=== PATIENT | female | born 1955 | race Caucasian/White ===

== ENCOUNTER 2019-11-17 00:04 | Day surgery (SDC) | payer BC, SELFPAY ==
[2019-11-12 10:29] VITALS: BMI 43.9
[2019-11-17 06:56] VITALS: BP 157/103; PULSE 71; RESP 18; TEMP 37.1; O2SAT 98
[2019-11-17] MEDS: LACTATED RINGERS 1,000 ML 150 ML IV CONT (06:57)
--- NOTE | 2019-11-17 07:16 | WPDANESEPPF ---
Anes - Initial Pre Proc Eval Procedure: Operation Date: 11/17/19 08:00 Proposed Procedures p Screening Colonoscopy - Bharath Braun MD Date/Time: 11/17/19 07:16 Surgeon: Bharath Braun MD Pre Op Diagnosis: Neoplasm Screening Patient Data Age: 64 Gender: F Height: 5 ft 4 in Weight: 114.3 kg Last Vital Signs Temp 37.1 C 11/17/19 06:56 Pulse 71 11/17/19 06:56 Resp 18 11/17/19 06:56 BP 157/103 H 11/17/19 06:56 Pulse Ox 98 11/17/19 06:56 Allergies Allergy/AdvReac Type Severity Reaction Status Date / Time No Known Allergies Allergy Verified 11/17/19 06:40 Home Medications Medication Instructions Recorded Confirmed Type aspirin [Adult Aspirin Regimen] 81 mg PO DAILY #90 tablet 07/18/19 11/12/19 Rx amlodipine 5 mg PO DAILY 11/12/19 11/12/19 History atorvastatin 20 mg PO DAILY 11/12/19 11/12/19 History benzonatate 100 mg PO TID PRN 11/12/19 11/12/19 History lisinopril-hydrochlorothiazide 1 tablet PO DAILY 11/12/19 11/12/19 History nebivolol [Bystolic] 20 mg PO DAILY 11/12/19 11/12/19 History Patient hx anesthesia problems: none Family hx anesthesia problems: none PMFSH Past Medical History Medical History HTN (hypertension) Pt's son reports she is prescribed medication, but he is unsure of how often she actually takes it Hyperlipidemia Morbid obesity Surgical History Surgical History History of tonsillectomy Family History Family History Father Carcinoma of colon Mother Carcinoma of colon Other Family history of malignant neoplasm Social History Social History Smoking status: Never smoker Second hand tobacco smoke exposure: No Alcohol intake: current Substance use: never Substance use type: does not use Gender identity (if verbalized by the patient): Female Spiritual care concerns: No Agree to blood products: Yes Anes - Eval Final PreProcedure Day of Procedure 11/17/19 07:16 Patient weight: morbidly obese Heart: regular rate and rhythm Lungs: clear to auscultation Airway: Mallampati scale class II Neurological: alert and oriented Last oral intake: >/= 8 hours ASA classification: III Emergent: no Anesthetic plan: proceed Anesthesia type and monitoring: general GIVS and standard monitoring Informed Consent: The patient's anesthetic plan and its attendant risks and benefits were discussed with the patient/family/POA. Questions were solicited and answers provided to the satisfaction of the patient/family/POA.
--- NOTE | 2019-11-17 07:55 | PM.HPGS ---
History of Present Illness History of Present Illness Consent: Risks, benefits, and alternatives have been discussed and questions answered. Patient agrees to proceed with procedure. Chief complaint: Neoplasm Screening Narrative: Amalia Gonzalez is a 64 year old female here for screening colonoscopy, both parents with colon cancer, her last one 7 years ago Review of Systems Constitutional: Constitutional: Denies headache(s) and Denies weakness Eyes: Eyes: Denies blurry vision ENT: Reports Normal hearing present, Denies headache(s) and Denies neck pain Cardiovascular: Cardiovascular: Denies chest pain and Denies dyspnea Respiratory: Respiratory: Denies dyspnea Gastrointestinal: Gastrointestinal: Reports no additional gastrointestinal complaints Genitourinary: Genitourinary: Denies dysuria Musculoskeletal: Musculoskeletal: Denies neck pain Integumentary/Breasts: Skin/Breast: Denies dry skin Neurologic: Reports Normal hearing present, Denies headache(s) and Denies weakness Psychiatric: Psychiatric: Denies anxiety Endocrine: Endocrine: Denies change in body appearance Hematologic/Lymphatic: Hematologic/Lymphatic: Denies easy bleeding Allergic/Immunologic: Allergic/Immunologic: Denies urticaria PMFSH Past Medical History Medical History HTN (hypertension) Pt's son reports she is prescribed medication, but he is unsure of how often she actually takes it Hyperlipidemia Morbid obesity Surgical History Surgical History History of tonsillectomy Family History Family History Father Carcinoma of colon Mother Carcinoma of colon Other Family history of malignant neoplasm Social History Social History Smoking status: Never smoker Second hand tobacco smoke exposure: No Alcohol intake: current Substance use: never Substance use type: does not use Gender identity (if verbalized by the patient): Female Spiritual care concerns: No Agree to blood products: Yes Meds Home Medications and Allergies Home Medications Medication Instructions Recorded Confirmed Type aspirin [Adult Aspirin Regimen] 81 mg PO DAILY #90 tablet 07/18/19 11/12/19 Rx amlodipine 5 mg PO DAILY 11/12/19 11/12/19 History atorvastatin 20 mg PO DAILY 11/12/19 11/12/19 History benzonatate 100 mg PO TID PRN 11/12/19 11/12/19 History lisinopril-hydrochlorothiazide 1 tablet PO DAILY 11/12/19 11/12/19 History nebivolol [Bystolic] 20 mg PO DAILY 11/12/19 11/12/19 History Allergies Allergy/AdvReac Type Severity Reaction Status Date / Time No Known Allergies Allergy Verified 11/17/19 06:40 Vital Signs Vital Signs - 24 hr 11/17/19 06:56 Temperature 98.7 F Pulse Rate 71 Respiratory Rate 18 Blood Pressure 157/103 H Pulse Oximetry 98 Exam Const: General: comfortable and no acute distress HENMT: General nose exam: Normal nares present Eyes: General: appearance normal, both eyes and all related structures Neck: Neck: no JVD Resp: Auscultation: clear to auscultation bilaterally Cardio: Rate: regular rate Rhythm: regular rhythm GI: Inspection: non-distended GI Palp: Yes Soft to palpation Skin: General skin exam: normal color Neuro: General: gait normal Speech: normal speech Extrem: General: normal to inspection Psych: Mental Status: mental status grossly normal Assessment and Plan Assessment and plan (1) Family history of colon cancer: Code(s): Z80.0 - Family history of malignant neoplasm of digestive organs Status: Acute Assessment and Plan: will proceed with colonoscopy
[2019-11-17 08:25] VITALS: BP 154/91; PULSE 67; RESP 19; O2SAT 100
[2019-11-17 08:35] VITALS: BP 147/71; PULSE 62; RESP 22; O2SAT 100
[2019-11-17 08:45] VITALS: BP 151/87; PULSE 56; RESP 18; O2SAT 100
== END 2019-11-17 09:06 | disposition home or self-care (01) ==
PROVIDERS: PCP Family Medicine Sports Medicine; Visit Provider Internal Medicine Gastroenterology
PROC: 0DJD8ZZ Inspection of Lower Intestinal Tract, Via Natural or Artificial Opening Endoscopic (ICD-10-PCS; CPT 45378; principal; 2019-11-17 08:00)
DX: Z12.11 Encounter for screening for malignant neoplasm of colon (principal); D12.0 Benign neoplasm of cecum; D12.2 Benign neoplasm of ascending colon; K63.5 Polyp of colon; K64.8 Other hemorrhoids; Z80.0 Family history of malignant neoplasm of digestive organs; I10 Essential (primary) hypertension; E78.5 Hyperlipidemia, unspecified; Z79.82 Long term (current) use of aspirin; E66.01 Morbid (severe) obesity due to excess calories; Z68.41 Body mass index [BMI] 40.0-44.9, adult
CPT/HCPCS: 45385; 88305; J2704; J7120

== ENCOUNTER 2020-04-16 09:04 | Outpatient (CLI) | payer MEDICARE, SELFPAY ==
--- NOTE | ~2020-04-16 | XR_ITS ---
XR hip RT min 2V 04/16/2020 10:18 Indication: Right hip pain Procedure: 2 views right hip Comparison: No prior studies for comparison. Findings: Mild osteoarthritis of the right hip. No fracture or traumatic malalignment. No significant soft tissue abnormality. No radiopaque foreign bodies. Impression: 1: Mild osteoarthritis of the right hip. Reviewed, dictated and finalized at location I. Impression: 1: Mild osteoarthritis of the right hip.
--- NOTE | ~2020-04-16 | MR_ITS ---
EXAMINATION: MR knee RT wo con DATE: 04/16/2020 10:08 INDICATION: Right knee pain TECHNIQUE: Magnetic resonance imaging (MRI) of the right knee was performed without intravenous contr ast. Sequences included coronal PD-weighted FSE, coronal PD-weighted FS FSE, sagittal T2-weighted FS E, sagittal PD-weighted FS FSE and axial PD weighted fat saturated FSE. COMPARISON: None. FINDINGS: Evaluation minimally limited by some motion artifact or blurring on multiple sequences including a co uple repeated sequences. Medial compartment: Medial meniscus is normal. Partial-thickness cartilage loss with mild chondral surface regularity dickson ng the medial third of the medial tibial plateau. Additional partial thickness cartilage loss along t he weightbearing medial femoral condyle with deeper chondral ulceration with underlying small central subchondral osteophyte at the lateral side of the anterior and posterior weightbearing medial femora l condyle. Small marginal osteophytes are present. Lateral compartment: Lateral meniscus is normal. Deep chondral fissure at the medial side of the lateral tibial plateau al keisha the shoulder the intercondylar eminence. Full/near full-thickness chondral fissure at the central weightbearing lateral femoral condyle. Small marginal osteophytes are present along with additional small subchondral osteophytes anteriorly at the junction of the weightbearing and trochlear lateral f emoral condyle. Small marginal osteophytes are present Patellofemoral compartment: There is extensive full thickness cartilage loss with subarticular edema and remodeling of the articu lar cortices along the lateral patellar facet and lateral trochlea. Ligaments and tendons: Anterior and posterior cruciate ligaments are normal. The medial collateral ligament and fibular yoan ateral ligament complex are normal. The extensor mechanism is normal. The visualized medial and later al hamstring tendons as well as the iliotibial band are normal. Fluid: Physiologic amount of fluid in the joint space. No loose osteochondral bodies identified. Osseous/other: There is approximately 1 cm lateral patellar subluxation. No fracture or pathologic marrow replacing process. IMPRESSION: 1. Possible 1 cm lateral patellar subluxation with advanced osteoarthritis at the lateral side of the patellofemoral compartment. 2. Mild osteoarthritis with regions of moderate to high-grade chondral malacia in the medial and late ral compartments. Reviewed, dictated and finalized at location A. IMPRESSION: 1. Possible 1 cm lateral patellar subluxation with advanced osteoarthritis at t he lateral side of the patellofemoral compartment. 2. Mild osteoarthritis with regions of moderate to high-grade chondral malacia in the medial and lateral compartments.
== END 2020-04-16 09:05 | disposition home or self-care (01) ==
PROVIDERS: PCP Family Medicine Sports Medicine; Visit Provider Anesthesiology
DX: M17.11 Unilateral primary osteoarthritis, right knee (principal); M16.11 Unilateral primary osteoarthritis, right hip
CPT/HCPCS: 73502; 73721

== ENCOUNTER 2022-06-22 11:23 | Outpatient (CLI) | payer MEDICARE, SELFPAY ==
[2022-06-22 19:55] LABS: Basophils Percent Auto 0.8 % (0.2-1.2); Eosinophils Absolute Auto 0.2 K/mm3 (0-0.3); Eosinophils Percent Auto 3.3 % (0-4.4); Hematocrit 40.8 % (37.0-47.0); Hemoglobin 12.6 g/dL (12.0-15.0); Immature Granulocyte Absolute 0.01 K/mm3 (0.00-0.031); Immature Granulocyte Percent A 0.2 % (0-0.5); Lymphocytes Absolute Auto 1.07 K/mm3 (0.9-3.2); Lymphocytes Percent Auto 20.7 % (18.3-44.2); Mean Corpuscular HGB Conc 30.9 g/dl (32-36); Mean Corpuscular Hemoglobin 27.9 pg (26-34); Mean Corpuscular Volume 90.5 fl (80-100); Mean Platelet Volume 10.5 fl (7.4-10.4); Monocytes Absolute Auto 0.4 K/mm3 (0.1-0.6); Monocytes Percent Auto 8.5 % (2.6-8.5); Neutrophils Absolute Auto 3.4 K/mm3 (1.3-6.7); Neutrophils Percent Auto 66.5 % (45.5-73.1); Platelet Count Result 289 k/mm3 (150-375); Red Blood Count 4.51 M/mm3 (4.2-5.4); Red Cell Distribution Width 13.9 % (11.5-14.5); White Blood Count 5.2 K/mm3 (4.5-10.0)
[2022-06-22 21:05] LABS: Hemoglobin A1C 5.7 % (<5.7)
[2022-06-22 22:37] LABS: Alanine Aminotransferase 25 U/L (6-35); Albumin Level 4.5 g/dL (3.5-5.1); Alkaline Phosphatase 99 U/L (38-126); Anion Gap 12 mmol/L (8-16); Aspartate Amino Transferase 22 U/L (14-36); Bilirubin,Total 0.4 mg/dL (0.2-1.3); Blood Urea Nitrogen 19 mg/dL (7-17); Carbon Dioxide 25 mmol/L (22-30); Chloride 104 mmol/L (98-107); Cholesterol 204 mg/dL (0-200); Estimated Glomerular Filt Rate > 60; Glucose 91 mg/dL (65-110); HDL Direct 86 mg/dL; Potassium 3.9 mmol/L (3.4-5.0); Sodium 141 mmol/L (137-145); Triglycerides 108 mg/dL (<150)
[2022-06-22 22:48] LABS: LDL Cholesterol Direct 81 mg/dL
[2022-06-23 10:11] LABS: Vitamin D 25 Hydroxy 68.8 ng/mL
== END 2022-06-22 11:24 | disposition home or self-care (01) ==
LOC: ANHGOSHLAB 11:28
PROVIDERS: PCP Internal Medicine; Visit Provider Clinical Nurse Specialist
DX: I10 Essential (primary) hypertension (principal); R73.9 Hyperglycemia, unspecified; E55.9 Vitamin D deficiency, unspecified
CPT/HCPCS: 36415; 80053; 80061; 82306; 83036; 84443; 85025

== ENCOUNTER 2022-07-17 13:15 | Outpatient (RCR) | payer MEDICARE, OTHER, SELFPAY ==
--- NOTE | 2022-06-15 11:43 | PCPTNOTE ---
Patient called & cancelled scheduled initial evaluation this date.
--- NOTE | 2022-06-20 15:31 | PTOPEVAL1 ---
Assessment and note entered by Pauline Olvera, PT, DPT Evaluation Information Assessment Status Evaluation Diagnosis back and leg pain, gait abnormalities Subjective Information Pt states she does not have knee pain. She states she has scoliosis and her legs will not stop swelling, she states it feels like she has bricks in her shoes. She states her legs feel very heavy and almost numb. Pt states she sits and sleeps in a recliner with her legs in a dependent position most of the day. She reports back pain mainly when walking, at it gets progressively worse throughout the day. Pt states she lives alone in an accessible home with no stairs. Pt states she can sit as long as she wants without an increase in pain. She reports she has been able to do her laundry and cook more. She would like to be able to walk outside. She has been using a walker since her R TKA 1.5 years ago , she just recently started using a cane. Reported Pain Level Pain Score 2: Self Report Assessment PT Clinical Summary Amalia CONTE presents to therapy today for her initial evaluation with a diagnosis of R knee and low back pain. Today she demonstrates decreased LE strength and core strength bilaterally, she is unable to perform a double leg heel raise, a double leg heel raise, or a sit<>stand without UE support. She reports heaviness and decreased sensations in her kelli LE since her knee surgery, it was recommended that she follow up with her referring provider to see if she can get a referral for lymphedema therapy. She has a very decreased gait speed. Skilled physical therapy services are indicated to improve strength, mobility, endurance, to minimize fall risk, and to promote safety with functional mobility. Plan of Care Interventions Electrical Stimulation,Gait Training,Hot Pack/Cold Pack,Manual Therapy,Neuro Re-education,Patient/ Caregiver Educati,Therapeutic Activities, Therapeutic Exercise PT Services Indicated Yes Treatment Frequency and 2x/wk for 4 wks Duration These treatments will address the objective and functional deficits as defined above. The patient will be advanced safely and appropriately in order for the patient to progress towards his/her prior level of function. Additional exercises will be introduced and as well as a comprehensive home exercise program upon discharge, if needed, ?to ensure carryover of functional gains achieved in the clinic. This treatment plan has been reviewed and agreement upon by the patient.
--- NOTE | 2022-07-05 13:21 | PCPTNOTE ---
Patient called to cancel appointment this date due to illness.
--- NOTE | 2022-07-12 12:43 | PCPTNOTE ---
Patient reports she is too sore to come in to therapy this date.
--- NOTE | 2022-07-17 15:46 | PTOPPROG ---
Assessment and note entered by Pauline Olvera, PT, DPT Evaluation Information Assessment Status Progress Diagnosis back and leg pain, gait abnormalities Subjective Information Pt states she has her evaluation for lymphedema coming up later this week. Pt states she has been improvement since starting therapy. She states she over did it last week and was sore for a few days . She states she does her exercises daily, and they are still hard. She would like to continue therapy. Pt reports 10% improvement in overall symptoms. Assessment PT Clinical Summary Naty CONTE presents to therapy today for her progress report following 5 visits of skilled therapy and participation in a home exercise program to treat her decreased mobility and gait deviations. Today she demonstrates minimal improvement during her 2 min walk test, she increased from 85ft to 105ft. However, she is now able to perform the 5xSTS test without UE support, this does take her increased time to complete, putting her at an increased risk for falls. Continuation of skilled physical therapy services are indicated to continue progressing towards therapy goals, to promote safety, and to improve functional mobility. Pt is getting evaluated by a lymphedema therapist and will continue here after she has complete her lymphedema POC. Plan of Care Interventions Electrical Stimulation,Gait Training,Hot Pack/Cold Pack,Manual Therapy,Neuro Re-education,Patient/ Caregiver Educati,Therapeutic Activities, Therapeutic Exercise PT Services Indicated Yes Treatment Frequency and to continue after lymphedema POC Duration These treatments will address the objective and functional deficits as defined above. The patient will be advanced safely and appropriately in order for the patient to progress towards his/her prior level of function. Additional exercises will be introduced and as well as a comprehensive home exercise program upon discharge, if needed, ?to ensure carryover of functional gains achieved in the clinic. This treatment plan has been reviewed and agreement upon by the patient.
--- NOTE | 2022-09-20 08:15 | PTOPDC ---
Assessment and note entered by Pauline Olvera, PT, DPT Evaluation Information Assessment Status Discharge- pt not present Diagnosis back and leg pain, gait abnormalities Subjective Information Amalia Deluna continues to be seen by a lymphedema therapist for treatment. She was placed on hold here pending her, progress with lymphedema therapy. If after finishing with lymphedema treatments she is to continue therapy for LBP and decreased mobility,she will need a new order. Amalia Deluna will be discharged at this time.
== END 2022-09-18 23:59 | disposition home or self-care (01) ==
LOC: ANHGOSHPT 13:15
PROVIDERS: PCP Internal Medicine
DX: M25.561 Pain in right knee (principal); M54.89 Other dorsalgia
CPT/HCPCS: 97110; 97112; 97161; 97530

== ENCOUNTER → 2022-07-18 13:33 | Outpatient (CLI) | payer MEDICARE, SELFPAY ==
--- NOTE | ~2022-07-18 | US_ITS ---
EXAMINATION: US venous doppler [facility] DATE: 07/18/2022 14:04 INDICATION: Lower limb swelling TECHNIQUE: Grayscale ultrasound images without and with compression and Doppler ultrasound images of the bilateral lower extremity veins were obtained. COMPARISON: None. FINDINGS: The visualized portions of right common femoral vein, profunda (deep) femoral vein, femoral vein, pop liteal vein, posterior tibial veins, peroneal veins, gastrocnemius vein and greater saphenous vein ou tflow are patent. The visualized portions of left common femoral vein, profunda femoral vein, femoral vein, popliteal v ein, posterior tibial veins, peroneal veins, gastrocnemius vein and greater saphenous vein outflow ar e patent. IMPRESSION: 1. No deep venous thrombosis in either lower limb. Reviewed, dictated and finalized at location A. [employer]
== END ==
PROVIDERS: PCP Clinical Nurse Specialist; Visit Provider Clinical Nurse Specialist
DX: M79.89 Other specified soft tissue disorders (principal)
CPT/HCPCS: 93970

== ENCOUNTER 2022-10-10 15:00 | Outpatient (RCR) | payer MEDICARE, OTHER, SELFPAY ==
--- NOTE | 2022-07-20 15:14 | PTOPEVAL1 ---
Assessment and note entered by Katelyn Cruz, PT Evaluation Information Assessment Status Evaluation Diagnosis soft tissue disorder/ B LE lymphedema Onset about 2 yr ago- after TKR Subjective Information was getting therapy for walking, balance, but it is on hold until I get the swelling cleared up; Reported Pain Level Pain Score Self Report Additional Pain Score Comments pain of 7-8 in legs- heavy feeling; like lugging bricks around, legs hurt Assessment PT Clinical Summary BJ has the diagnosis of B LE lymphedema. She is on hold from PT out pt for LE strength, gait/ balance type activities, to have her lymphedema addressed. By having the swelling decreased in her legs, it will ease her mobility & leg strength. She has leg exercises from the other therapy. She reports heaviness and pain in her legs, with difficulty moving them. With the evaluation, she has a combination of lipedema and lymphedema, with redness and fibrotic tissue over her lower leg, dorsum of foot & toe edema; over her knees and thighs is more lipedema with soft, fluffy tissue. Skilled PT services are indicated for complete decongestive therapy--manual lymph drainage, multi layer compression wraps, education for skin care, lymphedema management and appropriate compression garments for her to obtain. Plan of Care Interventions Intermittent Compression,Lymphedema Compression Pump ,Manual Lymph Drainage,Therapeutic Exercise PT Services Indicated Yes Treatment Frequency and 0-3x/wk for 8 weeks, due to therapist availability Duration treatment delayed in starting These treatments will address the objective and functional deficits as defined above. The patient will be advanced safely and appropriately in order for the patient to progress towards his/her prior level of function. Additional exercises will be introduced and as well as a comprehensive home exercise program upon discharge, if needed, ?to ensure carryover of functional gains achieved in the clinic. This treatment plan has been reviewed and agreement upon by the patient.
--- NOTE | 2022-08-24 14:53 | PCPTNOTE ---
pt was 15 min late for appt time, but her time had been changed from 2:00 to 1:30 and she was not aware of the change and arrived at 1:45;
--- NOTE | 2022-08-30 10:07 | PCPTNOTE ---
Patient called & cancelled scheduled appointment this date due to inclement weather.
--- NOTE | 2022-08-31 10:17 | PCPTNOTE ---
appointment on 08-29-22 was canceled due to therapist not available/ill; today's appt canceled by pt due to bad weather. I called her to discuss her wraps--she is to remove them and she has some compression socks that she will wear until return next week.
--- NOTE | 2022-09-14 16:05 | PTOPPROG ---
Assessment and note entered by Katelyn Cruz, PT Evaluation Information Assessment Status Progress Diagnosis soft tissue disorder/ B LE lymphedema Onset about 2 yr ago- after TKR Subjective Information INÉS reports: legs are definiately looking better; have been doing leg exercises and self massage; plan to order the leg garments next week; Assessment PT Clinical Summary INÉS has received 16 PT sessions. Compared to the initial evaluation: circumferenital measurement of legs have decreased : R by 14.7 cm and L by 34.4 cm; improved skin integrity with less redness over lower legs and less fibrotic tissue; less pain in her legs, but still has tenderness to touch L > R; strength of legs have improved- she is now able to lift her legs on/off the mat without assist; She is using loaner velcro compression garments for lower leg and foot--she is to order her own next week, when she gets her check. She is not interested in this time for compression to her knees and thighs. INÉS expresses a fear of falling and problems walking--an order request was faxed to address the gait and balance issues. Continue lymphedema treatment for further reduction and improvement in her skin. Await her to obtain compression garments for lower legs and feet. When orders received for gait/balance, will add to plan care. Plan of Care Interventions Intermittent Compression,Lymphedema Compression Pump ,Manual Lymph Drainage PT Services Indicated Yes Treatment Frequency and 2-3x/wk for 4 weeks Duration These treatments will address the objective and functional deficits as defined above. The patient will be advanced safely and appropriately in order for the patient to progress towards his/her prior level of function. Additional exercises will be introduced and as well as a comprehensive home exercise program upon discharge, if needed, ?to ensure carryover of functional gains achieved in the clinic. This treatment plan has been reviewed and agreement upon by the patient.
--- NOTE | 2022-09-28 16:09 | PTOPEVAL1 ---
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 She is currently receiving therapy here for lymphedema of B LE's. Evaluation this date for mobility and added to treatment plan of care. She reports gradual decrease in mobility past few years, using a wheeled walker and walking is more difficult. She is not doing a formal exercise program, other than few sitting movements of legs. Back pain and R knee pain also limit her mobility. She has difficulty getting in/out bed, so is sleeping in a recliner. With the evaluation, she has decreased strength of B LE's, decreased supine/sit/stand transfer skills; TUG time of 29 seconds with wheeled walker, 5 reps sit/clinic md associate 32 seconds with B UE use; 2 minute walking test distance of 125'; Tinetti balance score of 17/28= high risk for falls. Skilled PT services are indicated for therapeutic exercises to increase strength of LE's, gait and balance retraining, to increase safety with mobility and improve transfer skills. Education for home exercises and safety with mobility. Plan of Care Interventions Gait Training,Neuro Re-education,Therapeutic Activities,Therapeutic Exercise PT Services Indicated Yes Treatment Frequency and 1-2x/wk for 5 weeks Duration These treatments will address the objective and functional deficits as defined above. The patient will be advanced safely and appropriately in order for the patient to progress towards his/her prior level of function. Additional exercises will be introduced and as well as a comprehensive home exercise program upon discharge, if needed, ?to ensure carryover of functional gains achieved in the clinic. This t
--- NOTE | 2022-10-08 14:27 | PCPTNOTE ---
Patient called & cancelled scheduled appointment this date due to inclement weather.
--- NOTE | 2022-10-12 15:20 | PCPTNOTE ---
PHYSICAL THERAPY DISCHARGE 10-12-22 Attending Provider: JEREMY OchoaC Patient:Amalia Gonzalez Date of :1955 Amalia Deluna called today and canceled her reevaluation appointment, stated that her insurance has changed and she needed to cancel all of her appointments; Therefore she will be discharged at this time. She has received 21 PT appointments for lymphedema of R and L LE and gait/balance issues. To manage her lymphedema she has velcro compression lower leg garments and foot pieces. Education was completed for self management of her lymphedema. The goals were not assessed. Thank you for referring Ms. Gonzalez to [facility].
--- NOTE | 2022-10-12 15:24 | PCPTNOTE ---
pt was issued a new V # for today's PT reevaluation appt; she then called and canceled all of her appt, so the new V# was not used. And this number was her d/c status.
== END 2022-10-12 08:16 | disposition home or self-care (01) ==
LOC: ANHPT 15:00
PROVIDERS: PCP Clinical Nurse Specialist; Visit Provider Clinical Nurse Specialist
DX: M79.89 Other specified soft tissue disorders (principal); R26.9 Unspecified abnormalities of gait and mobility
CPT/HCPCS: 29581; 97016; 97110; 97112; 97140; 97161; 97162; 97530

== ENCOUNTER 2022-11-05 02:04 | Day surgery (SDC) | payer MEDICARE, MEDICAID, SELFPAY ==
[2022-10-19 13:42] VITALS: BMI 43.4
[2022-11-05 10:02] VITALS: BP 154/89; PULSE 88; RESP 18; TEMP 36.8; O2SAT 99; BMI 42.1
[2022-11-05] MEDS: LACTATED RINGERS 1,000 ML 150 ML IV CONT (10:18)
--- NOTE | 2022-11-05 10:37 | PM.HPGS ---
History of Present Illness History of Present Illness Consent: Risks, benefits, and alternatives have been discussed and questions answered. Patient agrees to proceed with procedure. Chief complaint: hx colon polyps, family hx colon ca Narrative: Amalia Gonzalez is a 67 year old female with colon polyps in 2019, both parents with colon cancer. Review of Systems Constitutional: Constitutional: Denies headache(s) and Denies weakness Eyes: Eyes: Denies blurry vision ENT: Reports Normal hearing present, Denies headache(s) and Denies neck pain Cardiovascular: Cardiovascular: Denies chest pain and Denies dyspnea Respiratory: Respiratory: Denies dyspnea Gastrointestinal: Gastrointestinal: Reports no additional gastrointestinal complaints Genitourinary: Genitourinary: Denies dysuria Musculoskeletal: Musculoskeletal: Denies neck pain Integumentary/Breasts: Skin/Breast: Denies dry skin Neurologic: Reports Normal hearing present, Denies headache(s) and Denies weakness Psychiatric: Psychiatric: Denies anxiety Endocrine: Endocrine: Denies change in body appearance Hematologic/Lymphatic: Hematologic/Lymphatic: Denies easy bleeding Allergic/Immunologic: Allergic/Immunologic: Denies urticaria PMF Past Medical History Medical History (Updated 11/05/22 @ 10:38 by Bharath Braun MD) Adenomatous colon polyp Family history of colon cancer HTN (hypertension) Hyperlipidemia Morbid obesity Surgical History Surgical History (Reviewed 06/22/22 @ 10:26 by Santa Sexton [facility]) History of knee replacement Right History of tonsillectomy Family History Family History Father Carcinoma of colon Cerebrovascular accident Mother Carcinoma of colon Sibling Breast cancer Grandparent Hypertension Other Family history of malignant neoplasm Social History Social History (Reviewed 06/22/22 @ 10:26 by Santa Sexton [facility]) Smoking status: Never smoker Second hand tobacco smoke exposure: No Alcohol intake: never Substance use: never Substance use type: does not use Gender identity (if verbalized by the patient): Female Spiritual care concerns: No Agree to blood products: Yes Meds Home Medications and Allergies Home Medications Medication Instructions Recorded Confirmed Type amlodipine 5 mg tablet 5 mg PO DAILY 11/12/19 11/05/22 History lisinopril 20 1 tablet PO DAILY 11/12/19 11/05/22 History mg-hydrochlorothiazide 12.5 mg tablet acetaminophen 500 mg tablet 500 mg PO Q6H PRN Pain 02/28/22 11/05/22 History (Tylenol Extra Strength) atorvastatin 20 mg tablet 20 mg PO DAILY #90 tabs 04/17/22 11/05/22 Rx meloxicam 7.5 mg tablet See Rx Instructions .Route 10/29/22 11/05/22 Rx .COMPLEX PRN Pain #90 tabs Allergies Allergy/AdvReac Type Severity Reaction Status Date / Time No Known Allergies Allergy Verified 11/05/22 10:01 Vital Signs Vital Signs - 24 hr 11/05/22 10:02 Temperature 98.2 F Pulse Rate 88 Respiratory Rate 18 Blood Pressure 154/89 H Pulse Oximetry 99 Oxygen Delivery Room Air Exam Const: General: comfortable and no acute distress HENMT: Face/Nose/Sinus: Normal nares present Eyes: General: appearance normal, both eyes and all related structures Neck: Neck: no JVD Resp: Auscultation: clear to auscultation bilaterally Cardio: Rate: regular rate Rhythm: regular rhythm GI: Inspection: non-distended GI Palp: Yes Soft to palpation Skin: General skin exam: normal color Neuro: General: gait normal Speech: normal speech Extrem: General: normal to inspection Psych: Mental Status: mental status grossly normal Assessment and Plan Assessment and plan (1) Family history of colon cancer: Code(s): Z80.0 - Family history of malignant neoplasm of digestive organs Status: Acute (2) Adenomatous colon polyp: Code(s): D12.6 - Benign neoplasm of c
--- NOTE | 2022-11-05 10:46 | P.PNAN_ITS ---
Anes - Initial Pre Proc Eval Procedure: Operation Date: 11/05/22 11:30 Proposed Procedures p Colonoscopy - Bharath Braun MD Date/Time: 11/05/22 10:46 Surgeon: Bharath Braun MD Pre Op Diagnosis: hx colon polyps, family hx colon ca Patient Data Age: 67 Gender: F Height: 1.63 m Weight: 111.3 kg Last Vital Signs Temp 98.2 F 11/05/22 10:02 Pulse 88 11/05/22 10:02 Resp 18 11/05/22 10:02 BP 154/89 H 11/05/22 10:02 Pulse Ox 99 11/05/22 10:02 O2 Del Method Room Air 11/05/22 10:02 Allergies Allergy/AdvReac Type Severity Reaction Status Date / Time No Known Allergies Allergy Verified 11/05/22 10:01 Home Medications Medication Instructions Recorded Confirmed Type amlodipine 5 mg tablet 5 mg PO DAILY 11/12/19 11/05/22 History lisinopril 20 1 tablet PO DAILY 11/12/19 11/05/22 History mg-hydrochlorothiazide 12.5 mg tablet acetaminophen 500 mg tablet 500 mg PO Q6H PRN Pain 02/28/22 11/05/22 History (Tylenol Extra Strength) atorvastatin 20 mg tablet 20 mg PO DAILY #90 tabs 04/17/22 11/05/22 Rx meloxicam 7.5 mg tablet See Rx Instructions .Route 10/29/22 11/05/22 Rx .COMPLEX PRN Pain #90 tabs Patient hx anesthesia problems: none Family hx anesthesia problems: none Results Review: All pre-operative results and documents have been reviewed as part of the pre- operative evaluation. [facility] Past Medical History Medical History (Updated 11/05/22 @ 10:38 by Bharath Braun MD) Adenomatous colon polyp Family history of colon cancer HTN (hypertension) Hyperlipidemia Morbid obesity Surgical History Surgical History History of knee replacement Right History of tonsillectomy Family History Family History Father Carcinoma of colon Cerebrovascular accident Mother Carcinoma of colon Sibling Breast cancer Grandparent Hypertension Other Family history of malignant neoplasm Social History Social History Smoking status: Never smoker Second hand tobacco smoke exposure: No Alcohol intake: never Substance use: never Substance use type: does not use Gender identity (if verbalized by the patient): Female Spiritual care concerns: No Agree to blood products: Yes Anes - Eval Final PreProcedure Day of Procedure 11/05/22 10:46 Patient weight: morbidly obese Heart: regular rate and rhythm Lungs: clear to auscultation Airway: Mallampati scale class III Neurological: alert and oriented Last oral intake: >/= 8 hours ASA classification: III Emergent: no Anesthetic plan: proceed Anesthesia type and monitoring: general GIVS and standard monitoring Results Review: All pre-operative results and documents have been reviewed as part of the pre- operative evaluation. Informed Consent: The patient's anesthetic plan and its attendant risks and benefits were discussed with the patient/family/POA. Questions were solicited and answers provided to the satisfaction of the patient/family/POA.
[2022-11-05 11:04] VITALS: BP 150/93; PULSE 86; RESP 16; O2SAT 100
[2022-11-05 11:14] VITALS: BP 162/88; PULSE 103; RESP 14; O2SAT 100
[2022-11-05 11:24] VITALS: BP 144/83; PULSE 78; RESP 16; O2SAT 100
== END 2022-11-05 11:35 | disposition home or self-care (01) ==
PROVIDERS: PCP Clinical Nurse Specialist; Visit Provider Internal Medicine Gastroenterology
PROC: 0DJD8ZZ Inspection of Lower Intestinal Tract, Via Natural or Artificial Opening Endoscopic (ICD-10-PCS; CPT 45378; principal; 2022-11-05 11:30)
DX: Z12.11 Encounter for screening for malignant neoplasm of colon (principal); K57.30 Diverticulosis of large intestine without perforation or abscess without bleeding; K64.8 Other hemorrhoids; Z86.010 Personal history of colon polyps; Z80.0 Family history of malignant neoplasm of digestive organs; I10 Essential (primary) hypertension; E78.5 Hyperlipidemia, unspecified; E66.01 Morbid (severe) obesity due to excess calories; Z68.41 Body mass index [BMI] 40.0-44.9, adult
CPT/HCPCS: G0105; J2704; J7120

== ENCOUNTER 2023-10-10 11:01 | Outpatient (CLI) | payer MEDICARE, SELFPAY ==
[2023-10-10 13:13] LABS: Basophils Absolute Auto 0.1 K/mm3 (0.0-0.1); Basophils Percent Auto 1.1 % (0.2-1.2); Eosinophils Absolute Auto 0.2 K/mm3 (0-0.3); Eosinophils Percent Auto 4.1 % (0-4.4); Hematocrit 33.3 % (37.0-47.0); Hemoglobin 9.2 g/dL (12.0-15.0); Lymphocytes Absolute Auto 1.07 K/mm3 (0.9-3.2); Lymphocytes Percent Auto 19.9 % (18.3-44.2); Mean Corpuscular HGB Conc 27.6 g/dl (32-36); Mean Corpuscular Hemoglobin 20.5 pg (26-34); Mean Corpuscular Volume 74.3 fl (80-100); Mean Platelet Volume 10.3 fl (7.4-10.4); Monocytes Absolute Auto 0.6 K/mm3 (0.1-0.6); Monocytes Percent Auto 10.8 % (2.6-8.5); Neutrophils Absolute Auto 3.5 K/mm3 (1.3-6.7); Neutrophils Percent Auto 64.1 % (45.5-73.1); Platelet Count Result 326 k/mm3 (150-375); Red Blood Count 4.48 M/mm3 (4.2-5.4); Red Cell Distribution Width 19.5 % (11.5-14.5); White Blood Count 5.4 K/mm3 (4.5-10.0)
[2023-10-10 13:26] LABS: Hemoglobin A1C 5.5 % (<5.7)
[2023-10-10 13:35] LABS: Alanine Aminotransferase 16 U/L (6-35); Albumin Level 4.1 g/dL (3.5-5.1); Alkaline Phosphatase 98 U/L (38-126); Anion Gap 7 mmol/L (8-16); Aspartate Amino Transferase 22 U/L (14-36); Bilirubin,Total 0.4 mg/dL (0.2-1.3); Blood Urea Nitrogen 19 mg/dL (7-17); Calcium 9.4 mg/dL (8.4-10.2); Carbon Dioxide 29 mmol/L (22-30); Chloride 105 mmol/L (98-107); Estimated Glomerular Filt Rate > 60; Glucose 88 mg/dL (65-110); Potassium 3.8 mmol/L (3.4-5.0); Sodium 141 mmol/L (137-145)
[2023-10-10 13:40] LABS: Vitamin D 25 Hydroxy 19.5 ng/mL
[2023-10-10 13:51] LABS: Hypochromasia 1+ (NORMAL); Microcytosis 1+ (NORMAL); Platelet Estimate Adequate (Adequate)
[2023-10-10 13:52] LABS: Schistocytes Rare (NORMAL)
== END 2023-10-10 11:02 | disposition home or self-care (01) ==
PROVIDERS: PCP Internal Medicine; Visit Provider Clinical Nurse Specialist
DX: R73.9 Hyperglycemia, unspecified (principal); E55.9 Vitamin D deficiency, unspecified; I10 Essential (primary) hypertension; Z13.228 Encounter for screening for other metabolic disorders
CPT/HCPCS: 36415; 80053; 82306; 83036; 84443; 85025

== ENCOUNTER 2024-01-30 23:45 | Inpatient (IN) | payer MEDICARE, SELFPAY ==
--- NOTE | ~2024-01-30 | XR_ITS ---
Portable chest x-ray Comparison: None Clinical History: Weakness Findings: Lungs are clear, without focal consolidation or pleural effusion. Cardiomediastinal silho uette is prominent. Bones and soft tissues are unremarkable. Impression: Clear lungs. Probable cardiomegaly. Reviewed, dictated and finalized at location . Impression: Clear lungs. Probable cardiomegaly.
[2024-01-30 23:47] VITALS: BP 172/111; PULSE 107; RESP 16; TEMP 37.4; O2SAT 98
--- NOTE | 2024-01-30 23:52 | ECG_ITS ---
SEE SCANNED COPY FOR CONFIRMED REPORT MTDD
[2024-01-31] VITALS (13 sets, daily range): BP systolic 140–195; BP diastolic 66–106; PULSE 83–115; RESP 16–21; TEMP 36.7–37.2; O2SAT 96–100; BMI 43.3
[2024-01-31 00:39] LABS: Basophils Percent Auto 0.4 % (0.2-1.2); Hematocrit 36.1 % (37.0-47.0); Hemoglobin 10.9 g/dL (12.0-15.0); Immature Granulocyte Absolute 0.06 K/mm3 (0.00-0.031); Immature Granulocyte Percent A 0.6 % (0-0.5); Lymphocytes Absolute Auto 0.63 K/mm3 (0.9-3.2); Lymphocytes Percent Auto 6.2 % (18.3-44.2); Mean Corpuscular HGB Conc 30.2 g/dl (32-36); Mean Corpuscular Volume 76.3 fl (80-100); Mean Platelet Volume 10.6 fl (7.4-10.4); Monocytes Absolute Auto 0.4 K/mm3 (0.1-0.6); Monocytes Percent Auto 4.3 % (2.6-8.5); Neutrophils Absolute Auto 8.9 K/mm3 (1.3-6.7); Neutrophils Percent Auto 88.5 % (45.5-73.1); Platelet Count Result 276 k/mm3 (150-375); Red Blood Count 4.73 M/mm3 (4.2-5.4); Red Cell Distribution Width 20.3 % (11.5-14.5); White Blood Count 10.1 K/mm3 (4.5-10.0)
[2024-01-31 00:51] LABS: Alanine Aminotransferase 18 U/L (6-35); Albumin Level 4.4 g/dL (3.5-5.1); Alkaline Phosphatase 104 U/L (38-126); Anion Gap 10 mmol/L (4-12); Aspartate Amino Transferase 21 U/L (14-36); Bilirubin,Total 0.5 mg/dL (0.2-1.3); Blood Urea Nitrogen 22 mg/dL (7-17); Calcium 8.9 mg/dL (8.4-10.2); Carbon Dioxide 23 mmol/L (22-30); Chloride 107 mmol/L (98-107); Estimated CRCL calculation 67 ml/min; Estimated Glomerular Filt Rate > 60; Glucose 109 mg/dL (65-110); Potassium 3.5 mmol/L (3.4-5.0); Sodium 140 mmol/L (137-145)
[2024-01-31 00:52] LABS: Lactic Acid Reflex 1.6 mmol/L (0.7-2.0)
[2024-01-31 01:01] LABS: Lipase 98 U/L (23-300); Magnesium 1.9 mg/dL (1.6-2.3)
[2024-01-31 01:02] LABS: Appearance Urine Turbid (Clear); Bacteria Urine None Seen /hpf; Bilirubin Urine Negative (Negative); Blood Urine 2+ (Negative); Budding Yeast Urine Present /hpf; Color Urine Dark Yellow (Yellow); Glucose Urine UA Negative (Negative); Ketones Urine 1+ mg/dL (Negative); Leukocyte Esterase Ur 2+ LEU/UL (Negative); Need Manual Microscopic Reviewed; Nitrate Urine Negative (Negative); Protein Urine 2+ mg/dL (Negative); Specific Grav Ur 1.039 (1.001-1.035); Squamous Epithelial Cell Urine Few /hpf (Few); WBC Urine >100 /hpf (0-3)
[2024-01-31 01:03] LABS: Add Urine Microscopic? YES
[2024-01-31 01:08] LABS: NT Pro B Type Natriuretic Pept 366 pg/mL (19.9-100)
[2024-01-31 01:13] LABS: Influenza A QL RT-PCR Negative (Negative); Influenza B QL RT-PCR Negative (Negative); RSV RNA, RT-PCR Negative (Negative); SARS-CoV-2 RNA PCR Negative (Negative)
--- NOTE | 2024-01-31 02:51 | ED.GENADULT ---
HPI - General Adult General Chief complaint: Weakness Stated complaint: weakness and light headed, glf Time Seen by Provider: 01/31/24 00:03 History of Present Illness HPI narrative: This is a 68-year-old female with a history morbid obesity, lymphedema, and hypertension, presenting for weakness. Patient was sitting in her recliner earlier today when she tried to get up she was too weak to stand up. Her son tried to help her move and she fell to the ground. She did not sustain any serious injuries or have any pain but she was unable to get up without assistance. She was then brought to the hospital for evaluation. Patient is denying fevers chills chest pain difficulty breathing abdominal pain or urinary symptoms. Patient uses an adult diaper Related Data Home Medications Medication Instructions Recorded Confirmed acetaminophen 500 mg tablet 500 mg PO Q6H PRN Pain 02/28/22 10/10/23 (Tylenol Extra Strength) cholecalciferol (vitamin D3) 25 25 mcg PO DAILY 10/10/23 10/10/23 mcg (1,000 unit) capsule ascorbic acid (vitamin C) 500 mg mg PO 10/31/23 capsule ferrous sulfate 325 mg (65 mg 325 mg PO DAILY 10/31/23 iron) tablet Allergies Allergy/AdvReac Type Severity Reaction Status Date / Time No Known Allergies Allergy Verified 10/10/23 10:03 [facility] Past Medical History Medical History (Updated 01/31/24 @ 02:59 by Armin Nelson MD) Adenomatous colon polyp Family history of colon cancer HTN (hypertension) Hyperlipidemia Morbid obesity Surgical History Surgical History History of knee replacement Right History of tonsillectomy Family History Family History Father Carcinoma of colon Cerebrovascular accident Mother Carcinoma of colon Sibling Breast cancer Grandparent Hypertension Other Family history of malignant neoplasm Social History Social History (Updated 10/10/23 @ 10:15 by Deisy Curry ENVIRONMENTAL DIRECTOR) Smoking status: Never smoker Second hand tobacco smoke exposure: No Alcohol intake: never Substance use: never Substance use type: does not use Do You Feel Safe in your Home?: Yes Lack of Transportation: No Lack of Food: Never True Current Housing: I Have Housing Concerned About Future Housing: No Difficulty Paying Gas/Electric Bills: No Difficulty Paying for Meds: No Currently Unemployed: No Education: Master's Degree or Higher Difficulty w/ Childcare or Family Care: No Gender identity (if verbalized by the patient): Female Spiritual care concerns: No Agree to blood products: Yes Exam Narrative: APPEARANCE: patient smells of urine Head: atraumatic. EYES: EOMI, NOSE: Atraumatic NECK: Trachea midline RESPIRATORY: No increased rate of breathing CTAB CARDIOVASCULAR: tachycardic, pitting edema of the lower extremities which patient says is chronic lymphedema ABDOMINAL: Non-distended, soft no guarding or rebound -exam is severely limited by body habitus MUSCULOSKELETAl: No obvious deformities NEURO: Alert. Moving 4/4 extremities SKIN:: Warm, dry. Normal color PSYCHIATRIC: Normal affect Course Vital Signs Vital signs: Vital Signs Temperature 99.3 F 01/30/24 23:47 Pulse Rate 107 H 01/30/24 23:47 Respiratory Rate 16 01/30/24 23:47 Blood Pressure 172/111 H 01/30/24 23:47 Pulse Oximetry 98 01/30/24 23:47 Oxygen Delivery Room Air 01/30/24 23:47 Temperature 99.3 F 01/30/24 23:47 Pulse Rate 113 H 01/31/24 02:06 Respiratory Rate 19 01/31/24 02:06 Blood Pressure 195/97 H 01/31/24 02:06 Pulse Oximetry 100 01/31/24 02:06 Oxygen Delivery Room Air 01/30/24 23:47 Medical Decision Making MDM Narrative Medical decision making narrative: -Course: 68-year-old female presenting for generalized weakness. Sepsis workup obtained. Significant for a urinary tract infection. Patient
[2024-01-31] MEDS: SODIUM CHLORIDE 0.9% IV 2,000 ML 999 ML IV CONT (02:56)
--- NOTE | 2024-01-31 05:05 | ADMGEN ---
This patient, Amalia Gonzalez, was admitted to 2 Medical Room 254-01. Patient/family oriented to hospital policies and general routines including ID bracelet, bed and alarms, visiting hours, pain management, procedures, bathroom and other care routines, personal items, smoking policy, room service/diet, and visiting hours. Information on how to activate the Rapid Response Team has been discussed. Patient/Family are encouraged to report perceived risks to care and to ask questions if they do not understand what they are told or what they should do.
--- NOTE | 2024-01-31 05:07 | PM.IMHP ---
H&P: HPI History of Present Illness Date/Time: 01/31/24 05:07 Chief Complaint: Confusion and weakness Narrative: this is a 68-year-old female with history of morbid obesity, lymphedema, hypertension, generalized weakness. Patient was sitting in a recliner at all when she used 1 to stand up and felt very weak and unsteady days history was from the subtle try to pulley man and she fell on the ground. She did not state any injuries but is unable to get up without assistance. Patient also having difficulty going to the bathroom because she has been unsteady on her feet also denied a urgency frequency of urination and denies fever chills nausea vomiting diarrhea hematemesis hemoptysis. Review of Systems Review of Systems: All systems reviewed & are unremarkable except as noted in HPI and below PMFSH Past Medical History Medical History (Updated 01/31/24 @ 02:59 by Armin Nelson MD) Adenomatous colon polyp Family history of colon cancer HTN (hypertension) Hyperlipidemia Morbid obesity Surgical History Surgical History History of knee replacement Right History of tonsillectomy Family History Family History Father Carcinoma of colon Cerebrovascular accident Mother Carcinoma of colon Sibling Breast cancer Grandparent Hypertension Other Family history of malignant neoplasm Social History Social History (Updated 10/10/23 @ 10:15 by Deisy Curry [facility]) Smoking status: Never smoker Second hand tobacco smoke exposure: No Alcohol intake: never Substance use: never Substance use type: does not use Do You Feel Safe in your Home?: Yes Lack of Transportation: No Lack of Food: Never True Current Housing: I Have Housing Concerned About Future Housing: No Difficulty Paying Gas/Electric Bills: No Difficulty Paying for Meds: No Currently Unemployed: No Education: Master's Degree or Higher Difficulty w/ Childcare or Family Care: No Gender identity (if verbalized by the patient): Female Spiritual care concerns: No Agree to blood products: Yes Meds Home Medications and Allergies Home Medications Medication Instructions Recorded Confirmed Type acetaminophen 500 mg tablet 500 mg PO Q6H PRN Pain 02/28/22 10/10/23 History (Tylenol Extra Strength) atorvastatin 20 mg tablet 20 mg PO DAILY #90 tabs 04/17/22 10/10/23 Rx amlodipine 5 mg tablet 5 mg PO DAILY #90 tabs 10/10/23 10/10/23 Rx cholecalciferol (vitamin D3) 25 25 mcg PO DAILY 10/10/23 10/10/23 History mcg (1,000 unit) capsule meloxicam 7.5 mg tablet See Rx Instructions .Route 10/10/23 10/10/23 Rx .COMPLEX PRN Pain #30 tabs ascorbic acid (vitamin C) 500 mg mg PO 10/31/23 History capsule ferrous sulfate 325 mg (65 mg 325 mg PO DAILY 10/31/23 History iron) tablet lisinopril 10 mg tablet 10 mg PO DAILY #90 tabs 11/19/23 Rx Allergies Allergy/AdvReac Type Severity Reaction Status Date / Time No Known Allergies Allergy Verified 10/10/23 10:03 Vital Signs Vital Signs - 24 hr 01/30/24 23:47 01/31/24 02:06 01/31/24 03:01 Temperature 37.4 C Pulse Rate 107 H 113 H 115 H Respiratory Rate 16 19 21 H Blood Pressure 172/111 H 195/97 H 186/106 H Pulse Oximetry 98 100 99 Oxygen Delivery Room Air 01/31/24 04:00 Temperature Pulse Rate 110 H Respiratory Rate 17 Blood Pressure 194/96 H Pulse Oximetry 96 Oxygen Delivery Exam Narrative: GENERAL: Well appearing, no acute distress. HEAD: Normocephalic, atraumatic. NECK: Supple. No adenopathy, no masses. RESPIRATORY: respirations nonlabored. , no rales, wheezing. CARDIOVASCULAR: Regular rate and rhythm without murmurs, . Peripheral pulses 2+ and equal bilaterally. ABDOMINAL: Soft, nontender, nondistended, no hepatosplenomegaly. Normoactive BS. MUSCULOSKELETAL: no Epigastric and no hypochondrial tenderness SKIN: W
[2024-01-31 05:42] LABS: Hematocrit 31.7 % (37.0-47.0); Hemoglobin 9.5 g/dL (12.0-15.0); Mean Corpuscular Hemoglobin 23.1 pg (26-34); Mean Corpuscular Volume 76.9 fl (80-100); Mean Platelet Volume 9.7 fl (7.4-10.4); Platelet Count Result 216 k/mm3 (150-375); Red Blood Count 4.12 M/mm3 (4.2-5.4); Red Cell Distribution Width 20.3 % (11.5-14.5); White Blood Count 8.1 K/mm3 (4.5-10.0)
[2024-01-31 05:56] LABS: Alanine Aminotransferase 17 U/L (6-35); Albumin Level 3.7 g/dL (3.5-5.1); Alkaline Phosphatase 84 U/L (38-126); Anion Gap 5 mmol/L (4-12); Aspartate Amino Transferase 27 U/L (14-36); Bilirubin,Total 0.3 mg/dL (0.2-1.3); Blood Urea Nitrogen 20 mg/dL (7-17); Calcium 8.4 mg/dL (8.4-10.2); Carbon Dioxide 26 mmol/L (22-30); Chloride 109 mmol/L (98-107); Estimated CRCL calculation 75 ml/min; Estimated Glomerular Filt Rate > 60; Glucose 113 mg/dL (65-110); Potassium 3.4 mmol/L (3.4-5.0); Sodium 140 mmol/L (137-145)
[2024-01-31] MEDS: LACTATED RINGERS 1,000 ML 125 ML IV CONT (06:04)
[2024-01-31] MEDS: ACETAMINOPHEN 325 MG TABLET 650 MG PO ×2 (06:09→15:06)
--- NOTE | 2024-01-31 07:45 | PM.IMPN ---
Progress Note: A&P Assessment and Plan (1) Acute UTI: Code(s): N39.0 - Urinary tract infection, site not specified Status: Acute (2) Weakness: Code(s): R53.1 - Weakness Status: Acute (3) Limited mobility: Code(s): Z74.09 - Other reduced mobility Status: Acute (4) Iron deficiency anemia: Code(s): D50.9 - Iron deficiency anemia, unspecified Status: Acute Plan UTI Urine cultures and sensitivity. ordered Continue IV hydration. Monitor CBC CMP monitor for sepsis. Monitor vital signs Start antibiotics was ceftriaxone will continue Start probiotics to prevent antibiotic induced diarrhea Blood cultures Monitor for obstructive uropathy and pyelonephritis 01/30- external cath-draining well OBESITY Monitor physical inactivity. Stress monitoring and eating disorder. Referral to weight loss clinic. Weight bias and stigma screening. BMI Class Diet and exercise counseling done Gait Instability Service to Physical Therapy Service to Home Care (PT) Home exercise program Instruction in assistive device Reduction in Polypharmacy, Minimize the use of high-risk medications, and Sedatives, Diuretics, Antidepressants, Narcotics, Anti-hypertensives, and Anti-anxiety Patient is at risk. Counseled accordingly on risk reduction.as above history of anemia continue iron supplements HTN- continue home amlodipine 5 mg, lisinopril 10 mg HLD- continue home statin Time Spent With Patient Time with patient: 15 - 25 minutes Subjective Date/time seen: 01/31/24 07:45 Interval history: 68-year-old female PMH obesity, lymphedema, hypertension, generalized weakness.? Patient was sitting in a recliner, tried to stand up- felt very weak and unsteady and she fell on the ground.? She did not sustain any injuries but was unable to get up without assistance.? Patient also having difficulty going to the bathroom because she has been unsteady on her feet also denied a urgency frequency of urination and denies fever chills nausea vomiting diarrhea hematemesis hemoptysis.Admitted for UTI, weakness-gait 01/30- seen and examined. Pt denies pain, states did not get much rest overnight. Tired. Waiting to work with PT/OT . BP elevated- had been for awhile. No headache, no chest pain. Review of Systems Review of Systems: All systems reviewed & are unremarkable except as noted in HPI and below Musculoskeletal: Musculoskeletal: Denies back pain Integumentary/Breasts: Skin/Breast: Reports wounds Neurologic: Denies Abnormal speech present and Denies confusion Psychiatric: Psychiatric: Denies anxiety and Denies behavioral changes Exam Narrative: GENERAL: Well appearing, no acute distress. HEAD: Normocephalic, atraumatic. NECK: Supple. No adenopathy, no masses. RESPIRATORY: respirations nonlabored. , no rales, wheezing. CARDIOVASCULAR: Regular rate and rhythm without murmurs, . Peripheral pulses 2+ and equal bilaterally. ABDOMINAL: Soft, nontender, nondistended, no hepatosplenomegaly. Normoactive BS. MUSCULOSKELETAL: no Epigastric and no hypochondrial tenderness SKIN: Warm, dry, dressing noted to lt ankle/foot. dressing c/d/i. wound care consulted NEURO: A&O X3. Moves all extremities Const: General: comfortable Resp: Effort & Inspection: normal respiratory effort Cardio: Rate: regular rate Rhythm: regular rhythm Neuro: Speech: normal speech Psych: Affect: normal affect Objective Data Vital Signs Vital Signs: Vital Signs - 24 hr 01/30/24 23:47 01/31/24 02:06 01/31/24 03:01 Temperature 99.3 F Pulse Rate 107 H 113 H 115 H Respiratory Rate 16 19 21 H Blood Pressure 172/111 H 195/97 H 186/106 H Pulse Oximetry 98 100 99 Oxygen Delivery Room Air 01/31/24 04:00 01/31/24 04:40 01/31/24 05:00 Temperature 98.7 F Pulse Rate 110 H 109 H Respiratory Rate 17 18 Blood Pressure 194/96 H 188/84 H Pulse Oximetry 96 99 Oxygen Delivery Room Air
[2024-01-31] MEDS: amLODIPine BESYLATE 5 MG TABLET PO (10:02)
[2024-01-31] MEDS: MELOXICAM 7.5 MG TABLET PO (10:02)
[2024-01-31] MEDS: ASCORBIC ACID 500 MG TABLET PO (10:02)
[2024-01-31] MEDS: FERROUS SULFATE 325 MG TABLET DR PO (10:02)
[2024-01-31] MEDS: PANTOPRAZOLE 40 MG TABLET PO (10:03)
[2024-01-31] MEDS: lisinopriL 10 MG TABLET PO (10:03)
[2024-01-31] MEDS: ATORVASTATIN 20 MG TABLET PO (10:03)
[2024-01-31] MEDS: ENOXAPARIN 40 MG/0.4 ML SYRINGE SUB-Q (10:04)
[2024-02-01 00:01] VITALS: PULSE 84
[2024-02-01 04:03] VITALS: PULSE 89
[2024-02-01 05:47] LABS: Hemoglobin 8.8 g/dL (12.0-15.0); Mean Corpuscular HGB Conc 29.3 g/dl (32-36); Mean Corpuscular Hemoglobin 22.8 pg (26-34); Mean Corpuscular Volume 77.7 fl (80-100); Mean Platelet Volume 10.2 fl (7.4-10.4); Platelet Count Result 204 k/mm3 (150-375); Red Blood Count 3.86 M/mm3 (4.2-5.4); Red Cell Distribution Width 20.4 % (11.5-14.5); White Blood Count 5.6 K/mm3 (4.5-10.0)
[2024-02-01 05:59] LABS: Alanine Aminotransferase 23 U/L (6-35); Albumin Level 3.5 g/dL (3.5-5.1); Alkaline Phosphatase 74 U/L (38-126); Anion Gap 6 mmol/L (4-12); Aspartate Amino Transferase 25 U/L (14-36); Bilirubin,Total 0.4 mg/dL (0.2-1.3); Blood Urea Nitrogen 14 mg/dL (7-17); Calcium 8.5 mg/dL (8.4-10.2); Carbon Dioxide 23 mmol/L (22-30); Chloride 110 mmol/L (98-107); Estimated CRCL calculation 85 ml/min; Estimated Glomerular Filt Rate > 60; Glucose 89 mg/dL (65-110); Potassium 3.4 mmol/L (3.4-5.0); Sodium 139 mmol/L (137-145)
[2024-02-01 06:33] VITALS: BP 167/99; PULSE 88; RESP 18; TEMP 36.8; O2SAT 98
[2024-02-01] MEDS: ACETAMINOPHEN 325 MG TABLET 650 MG PO (08:03)
[2024-02-01] MEDS: amLODIPine BESYLATE 5 MG TABLET 10 MG PO (08:56)
[2024-02-01] MEDS: FERROUS SULFATE 325 MG TABLET DR PO (08:56)
[2024-02-01] MEDS: PANTOPRAZOLE 40 MG TABLET PO (08:57)
[2024-02-01] MEDS: MELOXICAM 7.5 MG TABLET PO (08:57)
[2024-02-01] MEDS: lisinopriL 10 MG TABLET PO (08:57)
[2024-02-01] MEDS: ASCORBIC ACID 500 MG TABLET PO (08:57)
[2024-02-01] MEDS: ATORVASTATIN 20 MG TABLET PO (08:57)
[2024-02-01] MEDS: ENOXAPARIN 40 MG/0.4 ML SYRINGE SUB-Q (08:58)
--- NOTE | 2024-02-01 10:51 | PM.IMPN ---
Progress Note: A&P Assessment and Plan (1) Acute UTI: Code(s): N39.0 - Urinary tract infection, site not specified Status: Acute (2) Weakness: Code(s): R53.1 - Weakness Status: Acute (3) Limited mobility: Code(s): Z74.09 - Other reduced mobility Status: Acute (4) Iron deficiency anemia: Code(s): D50.9 - Iron deficiency anemia, unspecified Status: Acute Plan UTI Urine cultures and sensitivity. ordered- pending Continue IV hydration. Monitor CBC CMP monitor for sepsis. Monitor vital signs Started ceftriaxone will continue Start probiotics to prevent antibiotic induced diarrhea Blood cultures Monitor for obstructive uropathy and pyelonephritis 01/30- external cath-draining well #anemia ESTHER on iron supplement will order iron studies OBESITY Monitor physical inactivity. Stress monitoring and eating disorder. Referral to weight loss clinic. Weight bias and stigma screening. BMI Class Diet and exercise counseling done Gait Instability Service to Physical Therapy Service to Home Care (PT) Home exercise program Instruction in assistive device Reduction in Polypharmacy, Minimize the use of high-risk medications, and Sedatives, Diuretics, Antidepressants, Narcotics, Anti-hypertensives, and Anti-anxiety Patient is at risk. Counseled accordingly on risk reduction.as above history of anemia continue iron supplements HTN- continue home amlodipine 5 mg, lisinopril 10 mg -BP high- 170/180/99 reports high for awhile -amlodipine was increased to 10 mg yesterday, will increase lisinopril and have pt f/u with PCP for furtehr titration HLD- continue home statin Subjective Date/time seen: 02/01/24 10:51 Interval history: 68-year-old female PMH obesity, lymphedema, hypertension, generalized weakness.? Patient was sitting in a recliner, tried to stand up- felt very weak and unsteady and she fell on the ground.? She did not sustain any injuries but was unable to get up without assistance.? Patient also having difficulty going to the bathroom because she has been unsteady on her feet also denied a urgency frequency of urination and denies fever chills nausea vomiting diarrhea hematemesis hemoptysis.Admitted for UTI, weakness-gait 01/30- seen and examined. Pt denies pain, states did not get much rest overnight. Tired. Waiting to work with PT/OT . BP elevated- had been for awhile. No headache, no chest pain. 01/31 FEELING BETTER TODAY overall. Urinary symptoms improved. Didnot get much rest as someone screamed at night (another pt) that kept her awake. She doesn't feel dizzy, no chest pain, no sob- will d/c tele. Work with PT/OT, up to the chair TID with assistance. Review of Systems Review of Systems: All systems reviewed & are unremarkable except as noted in HPI and below Musculoskeletal: Musculoskeletal: Denies back pain Integumentary/Breasts: Skin/Breast: Reports wounds Neurologic: Denies Abnormal speech present, Denies behavioral changes and Denies confusion Psychiatric: Psychiatric: Denies anxiety, Denies behavioral changes and Denies confusion Exam Narrative: GENERAL: Well appearing, no acute distress. HEAD: Normocephalic, atraumatic. NECK: Supple. No adenopathy, no masses. RESPIRATORY: respirations nonlabored. , no rales, wheezing. CARDIOVASCULAR: Regular rate and rhythm without murmurs, . Peripheral pulses 2+ and equal bilaterally. ABDOMINAL: Soft, nontender, nondistended, no hepatosplenomegaly. Normoactive BS. MUSCULOSKELETAL: no Epigastric and no hypochondrial tenderness SKIN: Warm, dry, dressing noted to lt ankle/foot. dressing c/d/i. wound care consulted NEURO: A&O X3. Moves all extremities Const: General: comfortable; No confusion Orientation/consciousness: No confusion Resp: Effort & Inspection: normal respiratory effort Cardio: Rate: regular rate Rhythm: regular rhythm Neuro: General: No confusion Speech: normal speech a
--- NOTE | 2024-02-01 11:47 | PC.NURSE ---
0754 telemetry, P- 0.14, ORS- 0.06, HR- 106, Sinus Tachycardia,
[2024-02-01] MEDS: lisinopriL 20 MG TABLET PO (12:56)
--- NOTE | 2024-02-01 12:56 | PC.NURSE ---
pt refusing BP check at this time
--- NOTE | 2024-02-01 13:58 | PC.NURSE ---
1204 telemetry; WA- 0.16, ORS- 0.08, HR-75, Sinus Rhythm
[2024-02-01 15:40] VITALS: BP 123/50; PULSE 92; RESP 16; TEMP 36.8; O2SAT 98
[2024-02-01 19:20] VITALS: BP 161/82; PULSE 90; RESP 18; TEMP 36.5; O2SAT 100
[2024-02-02] MEDS: ACETAMINOPHEN 325 MG TABLET 650 MG PO (03:47)
[2024-02-02 04:45] VITALS: BP 199/93; PULSE 84; RESP 18; TEMP 36.7; O2SAT 96
[2024-02-02 05:13] LABS: Iron 19 ug/dL (37-170)
[2024-02-02 05:22] LABS: Percent Iron Saturation 5 % (20-50)
[2024-02-02 06:42] VITALS: BP 190/95
[2024-02-02] MEDS: hydrALAZINE HCL 20 MG/ML VIAL 10 MG IV PUSH (06:53)
[2024-02-02 08:00] VITALS: BP 188/92; PULSE 82; RESP 18; TEMP 36.7; O2SAT 97
--- NOTE | 2024-02-02 08:14 | PM.IMPN ---
Progress Note: A&P Assessment and Plan (1) Acute UTI: Code(s): N39.0 - Urinary tract infection, site not specified Status: Acute (2) Weakness: Code(s): R53.1 - Weakness Status: Acute (3) Limited mobility: Code(s): Z74.09 - Other reduced mobility Status: Acute (4) Iron deficiency anemia: Code(s): D50.9 - Iron deficiency anemia, unspecified Status: Acute Plan UTI Urine cultures and sensitivity. ordered- pending Continue IV hydration. Monitor CBC CMP monitor for sepsis. Monitor vital signs Started ceftriaxone will continue Start probiotics to prevent antibiotic induced diarrhea Blood cultures Monitor for obstructive uropathy and pyelonephritis 01/30- external cath-draining well #anemia ESTHER on iron supplement will order iron studies 02/01- iron 17, tibc 358, saTURATION 5% will order x 1 IV venofer and continue iron supplement OBESITY Monitor physical inactivity. Stress monitoring and eating disorder. Referral to weight loss clinic. Weight bias and stigma screening. BMI Class Diet and exercise counseling done Gait Instability Service to Physical Therapy Service to Home Care (PT) Home exercise program Instruction in assistive device Reduction in Polypharmacy, Minimize the use of high-risk medications, and Sedatives, Diuretics, Antidepressants, Narcotics, Anti-hypertensives, and Anti-anxiety Patient is at risk. Counseled accordingly on risk reduction.as above HTN- home amlodipine, lisinopril -BP high- 170/180/99 reports high for awhile -amlodipine was increased to 10 mg yesterday, will increase lisinopril and have pt f/u with PCP for further titration HLD- continue home statin Time Spent With Patient Time with patient: less than 15 minutes Subjective Date/time seen: 02/02/24 08:14 Interval history: 68-year-old female PMH obesity, lymphedema, hypertension, generalized weakness.? Patient was sitting in a recliner, tried to stand up- felt very weak and unsteady and she fell on the ground.? She did not sustain any injuries but was unable to get up without assistance.? Patient also having difficulty going to the bathroom because she has been unsteady on her feet also denied a urgency frequency of urination and denies fever chills nausea vomiting diarrhea hematemesis hemoptysis.Admitted for UTI, weakness-gait 01/30- seen and examined. Pt denies pain, states did not get much rest overnight. Tired. Waiting to work with PT/OT . BP elevated- had been for awhile. No headache, no chest pain. 01/31 FEELING BETTER TODAY overall. Urinary symptoms improved. Didnot get much rest as someone screamed at night (another pt) that kept her awake. She doesn't feel dizzy, no chest pain, no sob- will d/c tele. Work with PT/OT, up to the chair TID with assistance. 02/01 BP high- in 190/99's range. Hydralazine IV prn is ordered. will increase lisinopril while in the hospital. Worked with PT/OT Review of Systems Review of Systems: All systems reviewed & are unremarkable except as noted in HPI and below Musculoskeletal: Musculoskeletal: Denies back pain Integumentary/Breasts: Skin/Breast: Reports wounds Neurologic: Denies Abnormal speech present, Denies behavioral changes and Denies confusion Psychiatric: Psychiatric: Denies anxiety, Denies behavioral changes and Denies confusion Exam Narrative: GENERAL: Well appearing, no acute distress. HEAD: Normocephalic, atraumatic. NECK: Supple. No adenopathy, no masses. RESPIRATORY: respirations nonlabored. , no rales, wheezing. CARDIOVASCULAR: Regular rate and rhythm without murmurs, Peripheral pulses 2+ and equal bilaterally. ABDOMINAL: Soft, nontender, nondistended, no hepatosplenomegaly. Normoactive BS. MUSCULOSKELETAL: no Epigastric and no hypochondrial tenderness SKIN: Warm, dry, dressing noted to lt ankle/foot. dressing c/d/i. wound care consulted NEURO: A&O X3. Moves all extremities Const: General: comf
[2024-02-02] MEDS: ASCORBIC ACID 500 MG TABLET PO (09:41)
[2024-02-02] MEDS: PANTOPRAZOLE 40 MG TABLET PO (09:41)
[2024-02-02] MEDS: IRON SUCROSE COMPLEX 100 MG in SODIUM CHLORIDE 0.9% IV 50 ML 220 MG IVPB (09:42)
[2024-02-02] MEDS: FERROUS SULFATE 325 MG TABLET DR PO (09:42)
[2024-02-02] MEDS: ATORVASTATIN 20 MG TABLET PO (09:42)
[2024-02-02] MEDS: MELOXICAM 7.5 MG TABLET PO (09:42)
[2024-02-02] MEDS: ENOXAPARIN 40 MG/0.4 ML SYRINGE SUB-Q (09:42)
[2024-02-02 09:48] VITALS: BP 162/80
[2024-02-02] MEDS: amLODIPine BESYLATE 5 MG TABLET 10 MG PO (09:48)
[2024-02-02] MEDS: lisinopriL 20 MG TABLET 40 MG PO (09:53)
[2024-02-02] MEDS: ACETAMINOPHEN 500 MG TABLET PO (09:59)
[2024-02-02 16:00] VITALS: BP 152/86; PULSE 88; RESP 19; TEMP 37.2; O2SAT 98
[2024-02-02 19:33] VITALS: BP 173/80; PULSE 98; RESP 18; TEMP 36.6; O2SAT 98
--- NOTE | 2024-02-02 22:01 | PC.NURSE ---
Patient states that she will only allow her blood pressure to be taken one-more time during this admission, so you better choose your time accordingly . BP medication scheduled 02/03/24; will defer 0600 VS to day shift to ensure safe administration of BP medication.
--- NOTE | 2024-02-03 07:57 | PM.IMPN ---
Progress Note: A&P Assessment and Plan (1) Acute UTI: Code(s): N39.0 - Urinary tract infection, site not specified Status: Acute (2) Weakness: Code(s): R53.1 - Weakness Status: Acute (3) Limited mobility: Code(s): Z74.09 - Other reduced mobility Status: Acute (4) Iron deficiency anemia: Code(s): D50.9 - Iron deficiency anemia, unspecified Status: Acute Plan UTI Urine cultures and sensitivity- e coli- on appropriate antibiotics Continue hydration. Monitor CBC CMP monitor for sepsis. Monitor vital signs On ceftriaxone- will continue Start probiotics to prevent antibiotic induced diarrhea Blood cultures -pseudomonas aeruginosa Monitor for obstructive uropathy and pyelonephritis External cath-draining well #anemia ESTHER on iron supplement will order iron studies 02/01- iron 17, tibc 358, SATURATION 5% will order x 1 IV venofer and continue iron supplement OBESITY Monitor physical inactivity. Stress monitoring and eating disorder. Referral to weight loss clinic. Weight bias and stigma screening. BMI Class Diet and exercise counseling done Gait Instability Service to Physical Therapy Service to Home Care (PT) Home exercise program Instruction in assistive device Reduction in Polypharmacy, Minimize the use of high-risk medications, and Sedatives, Diuretics, Antidepressants, Narcotics, Anti-hypertensives, and Anti-anxiety Patient is at risk. Counseled accordingly on risk reduction.as above HTN- home amlodipine, lisinopril -BP high- 170/180/99 reports high for awhile at home -amlodipine was increased to 10 mg yesterday, will increase lisinopril and have pt f/u with PCP for further titration HLD- continue home statin Time Spent With Patient Time with patient: less than 15 minutes Subjective Date/time seen: 02/03/24 07:57 Interval history: 68-year-old female PMH obesity, lymphedema, hypertension, generalized weakness.? Patient was sitting in a recliner, tried to stand up- felt very weak and unsteady and she fell on the ground.? She did not sustain any injuries but was unable to get up without assistance.? Patient also having difficulty going to the bathroom because she has been unsteady on her feet also denied a urgency frequency of urination and denies fever chills nausea vomiting diarrhea hematemesis hemoptysis.Admitted for UTI, weakness-gait 01/30- seen and examined. Pt denies pain, states did not get much rest overnight. Tired. Waiting to work with PT/OT . BP elevated- had been for awhile. No headache, no chest pain. 01/31 FEELING BETTER TODAY overall. Urinary symptoms improved. Didnot get much rest as someone screamed at night (another pt) that kept her awake. She doesn't feel dizzy, no chest pain, no sob- will d/c tele. Work with PT/OT, up to the chair TID with assistance. 02/01 BP high- in 190/99's range. Hydralazine IV prn is ordered. will increase lisinopril while in the hospital. Worked with PT/OT 02/02 working with PT/Ot hAD BEEN ON iv ANTIBIOTIC- cEFTRIAXONE since 01/31. will repeAT CBC, CMP TODAY Review of Systems Review of Systems: All systems reviewed & are unremarkable except as noted in HPI and below Musculoskeletal: Musculoskeletal: Denies back pain Integumentary/Breasts: Skin/Breast: Reports wounds Neurologic: Denies Abnormal speech present, Denies behavioral changes and Denies confusion Psychiatric: Psychiatric: Denies anxiety, Denies behavioral changes and Denies confusion Exam Narrative: GENERAL: Well appearing, no acute distress. HEAD: Normocephalic, atraumatic. NECK: Supple. No adenopathy, no masses. RESPIRATORY: respirations nonlabored. , no rales, wheezing. CARDIOVASCULAR: Regular rate and rhythm without murmurs, Peripheral pulses 2+ and equal bilaterally. ABDOMINAL: Soft, nontender, nondistended, no hepatosplenomegaly. Normoactive BS. MUSCULOSKELETAL: no Epigastric and no hypochondrial tenderness SKIN: Warm, dry, dressi
[2024-02-03 08:18] LABS: Hematocrit 30.6 % (37.0-47.0); Hemoglobin 8.9 g/dL (12.0-15.0); Mean Corpuscular HGB Conc 29.1 g/dl (32-36); Mean Corpuscular Hemoglobin 22.4 pg (26-34); Mean Corpuscular Volume 77.1 fl (80-100); Mean Platelet Volume 9.8 fl (7.4-10.4); Platelet Count Result 269 k/mm3 (150-375); Red Blood Count 3.97 M/mm3 (4.2-5.4); Red Cell Distribution Width 20.3 % (11.5-14.5); White Blood Count 4.8 K/mm3 (4.5-10.0)
[2024-02-03 08:23] VITALS: O2SAT 98
[2024-02-03 08:41] LABS: Alanine Aminotransferase 18 U/L (6-35); Albumin Level 3.5 g/dL (3.5-5.1); Alkaline Phosphatase 74 U/L (38-126); Anion Gap 5 mmol/L (4-12); Aspartate Amino Transferase 18 U/L (14-36); Bilirubin,Total 0.4 mg/dL (0.2-1.3); Blood Urea Nitrogen 11 mg/dL (7-17); Calcium 8.7 mg/dL (8.4-10.2); Carbon Dioxide 26 mmol/L (22-30); Chloride 108 mmol/L (98-107); Estimated CRCL calculation 85 ml/min; Estimated Glomerular Filt Rate > 60; Glucose 92 mg/dL (65-110); Potassium 3.6 mmol/L (3.4-5.0); Sodium 139 mmol/L (137-145)
[2024-02-03 10:47] VITALS: BP 187/90; PULSE 98; RESP 16; O2SAT 97
[2024-02-03] MEDS: amLODIPine BESYLATE 5 MG TABLET 10 MG PO (10:48)
[2024-02-03] MEDS: ASCORBIC ACID 500 MG TABLET PO (10:48)
[2024-02-03] MEDS: MELOXICAM 7.5 MG TABLET PO (10:48)
[2024-02-03] MEDS: ATORVASTATIN 20 MG TABLET PO (10:48)
[2024-02-03] MEDS: PANTOPRAZOLE 40 MG TABLET PO (10:48)
[2024-02-03] MEDS: lisinopriL 20 MG TABLET 40 MG PO (10:49)
[2024-02-03] MEDS: FERROUS SULFATE 325 MG TABLET DR PO (10:49)
[2024-02-03] MEDS: ENOXAPARIN 40 MG/0.4 ML SYRINGE SUB-Q (10:49)
--- NOTE | 2024-02-03 11:47 | PM.DS ---
DS: Admitting Diagnosis Discharge Date 02/02 Admitting Diagnosis uti, sepsis DS: Discharge Diagnosis Discharge Diagnosis (1) Acute UTI: Code(s): N39.0 - Urinary tract infection, site not specified Status: Acute (2) Weakness: Code(s): R53.1 - Weakness Status: Acute (3) Limited mobility: Code(s): Z74.09 - Other reduced mobility Status: Acute (4) Iron deficiency anemia: Code(s): D50.9 - Iron deficiency anemia, unspecified Status: Acute Plan Final dx: UTI, sepsis, HTN UTI Urine cultures and sensitivity- e coli- on appropriate antibiotics Continue hydration. Monitor CBC CMP monitor for sepsis. Monitor vital signs On ceftriaxone- will continue Start probiotics to prevent antibiotic induced diarrhea Blood cultures -pseudomonas aeruginosa Monitor for obstructive uropathy and pyelonephritis External cath-draining well #anemia ESTHER on iron supplement will order iron studies 02/01- iron 17, tibc 358, SATURATION 5% will order x 1 IV venofer and continue iron supplement OBESITY Monitor physical inactivity. Stress monitoring and eating disorder. Referral to weight loss clinic. Weight bias and stigma screening. BMI Class Diet and exercise counseling done Gait Instability Service to Physical Therapy Service to Home Care (PT) Home exercise program Instruction in assistive device Reduction in Polypharmacy, Minimize the use of high-risk medications, and Sedatives, Diuretics, Antidepressants, Narcotics, Anti-hypertensives, and Anti-anxiety Patient is at risk. Counseled accordingly on risk reduction.as above HTN- home amlodipine, lisinopril -not well controlled -BP high- 170/180/99 reports high for awhile at home -amlodipine was increased to 10 mg yesterday, will increase lisinopril and have pt f/u with PCP for further titration HLD- continue home statin DS: Summary Hospital Course Hospital Course: 68-year-old female PMH? obesity, lymphedema, hypertension, generalized weakness.? Patient was sitting in a recliner, tried to stand up- felt very weak and unsteady and she fell on the ground.? She did not sustain any injuries but was unable to get up without assistance.? Patient also having difficulty going to the bathroom because she has been unsteady on her feet also denied a urgency frequency of urination and denies fever chills nausea vomiting diarrhea hematemesis hemoptysis.Admitted for UTI, weakness-gait 01/30- seen and examined.? Pt denies pain, states did not get much rest overnight. ? Tired. Waiting to work with PT/OT . BP elevated- had been for awhile. No headache, no chest pain. 01/31 FEELING BETTER TODAY overall.? Urinary symptoms improved.? Didnot get much rest as someone screamed at night (another pt) that kept her awake.? She doesn't feel dizzy, no chest pain, no sob- will d/c tele.? Work with PT/OT, up to the chair TID with assistance. 02/01 BP high- in 190/99's range.? Hydralazine IV prn is ordered. will increase lisinopril while in the hospital. Worked with PT/OT . wants to go home- still weak and requires help with ambulation- home health is ordered. Discussed with pt-fall precautions and she has family at home to help if needed. She is aware that PT/OT recommend skilled PT placement- she is not interested in that- insists on home discharge. Status at Discharge Functional status at discharge: uses cane/walker Overall status at discharge: patient is back to baseline Time Spent with Patient Time attestation: Total time spent providing and/or coordinating discharge services: Time spent: Less than 30 minutes Specific discharge activities: please monitor BP and keep log- will need a close f/u with PCP on BP med titration. Make sure home health is coming to work on strengthening with you when discharged. Exam Narrative: GENERAL: Well appearing, no acute distress. HEAD: Normocephalic, atraumatic. NECK: Supple. No adenopathy, no masses. RESPIRATORY: respirations nonla
[2024-02-03 13:55] VITALS: PULSE 90; O2SAT 99
== END 2024-02-03 14:30 | disposition home health service (06) | DRG 872 ==
LOC: ANHED 01-31 04:07 → ANH2MED 01-31 04:09
PROVIDERS: Admitting Provider Internal Medicine; Emergency Provider Emergency Medicine; PCP Internal Medicine; Visit Provider Nurse Practitioner
DX: A41.52 Sepsis due to Pseudomonas (principal); N39.0 Urinary tract infection, site not specified; Z68.41 Body mass index [BMI] 40.0-44.9, adult; I10 Essential (primary) hypertension; I89.0 Lymphedema, not elsewhere classified; D50.9 Iron deficiency anemia, unspecified; E78.5 Hyperlipidemia, unspecified; E66.01 Morbid (severe) obesity due to excess calories; R26.89 Other abnormalities of gait and mobility; Z96.651 Presence of right artificial knee joint; Z20.822 Contact with and (suspected) exposure to COVID-19; Z86.010 Personal history of colon polyps; Z80.0 Family history of malignant neoplasm of digestive organs
CPT/HCPCS: 36415; 71045; 80053; 81001; 83540; 83550; 83605; 83690; 83735; 83880; 85025; 85027; 87040; 87077; 87086; 87088; 87186; 87637; 93005; 96365; 97161; 97165; 99285; A9270; J0360; J0696; J1650; J1756; J7030; J7120

== ENCOUNTER 2024-02-27 11:30 | Outpatient (NON) | payer MEDICARE, SELFPAY ==
[2024-02-27 12:20] LABS: Basophils Percent Auto 0.9 % (0.2-1.2); Eosinophils Absolute Auto 0.2 K/mm3 (0-0.3); Eosinophils Percent Auto 3.7 % (0-4.4); Hematocrit 34.8 % (37.0-47.0); Hemoglobin 10.6 g/dL (12.0-15.0); Immature Granulocyte Absolute 0.02 K/mm3 (0.00-0.031); Immature Granulocyte Percent A 0.4 % (0-0.5); Immature Reticulocyte Fraction 10.3 % (3.0-15.9); Lymphocytes Percent Auto 32.3 % (18.3-44.2); Mean Corpuscular HGB Conc 30.5 g/dl (32-36); Mean Corpuscular Hemoglobin 24.3 pg (26-34); Mean Corpuscular Volume 79.6 fl (80-100); Mean Platelet Volume 11.2 fl (7.4-10.4); Monocytes Absolute Auto 0.4 K/mm3 (0.1-0.6); Monocytes Percent Auto 8.2 % (2.6-8.5); Neutrophils Absolute Auto 2.5 K/mm3 (1.3-6.7); Neutrophils Percent Auto 54.5 % (45.5-73.1); Platelet Count Result 299 k/mm3 (150-375); Red Blood Count 4.37 M/mm3 (4.2-5.4); Red Cell Distribution Width 19.7 % (11.5-14.5); Reticulocyte Hemoglobin Conten 24.5 pg (28.2-36.6); Reticulocyte Percent 0.98 % (0.7-4.3); Reticulocytes Absolute 0.04 10^6/uL (0.02-0.10); White Blood Count 4.7 K/mm3 (4.5-10.0)
[2024-02-27 12:38] LABS: Alanine Aminotransferase 17 U/L (6-35); Albumin Level 4.4 g/dL (3.5-5.1); Alkaline Phosphatase 81 U/L (38-126); Anion Gap 11 mmol/L (4-12); Aspartate Amino Transferase 22 U/L (14-36); Bilirubin,Total 0.4 mg/dL (0.2-1.3); Blood Urea Nitrogen 28 mg/dL (7-17); Calcium 9.1 mg/dL (8.4-10.2); Carbon Dioxide 26 mmol/L (22-30); Chloride 105 mmol/L (98-107); Cholesterol 191 mg/dL (0-200); Estimated Glomerular Filt Rate > 60; Glucose 85 mg/dL (65-110); HDL Direct 89 mg/dL; Potassium 3.6 mmol/L (3.4-5.0); Sodium 142 mmol/L (137-145); Triglycerides 68 mg/dL (<150)
[2024-02-27 12:48] LABS: LDL Cholesterol Direct 81 mg/dL
[2024-02-27 12:55] LABS: Iron 37 ug/dL (37-170)
[2024-02-27 13:04] LABS: Percent Iron Saturation 8 % (20-50)
[2024-02-27 13:31] LABS: Ferritin 7.97 ng/mL (11.1-264)
== END 2024-02-27 11:31 | disposition home or self-care (01) ==
LOC: HOME HLTH 11:36
PROVIDERS: PCP Internal Medicine; Visit Provider Clinical Nurse Specialist
DX: D64.9 Anemia, unspecified (principal); I10 Essential (primary) hypertension; D50.9 Iron deficiency anemia, unspecified
CPT/HCPCS: 80053; 80061; 82607; 82728; 83540; 83550; 85025; 85046

== ENCOUNTER 2024-04-22 07:12 | Outpatient (RCR) | payer MEDICARE, SELFPAY ==
[2024-03-11 10:42] VITALS: BMI 43.3
== END 2024-06-01 12:11 | disposition home or self-care (01) ==
LOC: ANHWOC 07:12
PROVIDERS: PCP Internal Medicine; Visit Provider Clinical Nurse Specialist
DX: S81.802D Unspecified open wound, left lower leg, subsequent encounter (principal)
CPT/HCPCS: 99213; 99215; A9270; G0463

== ENCOUNTER 2024-12-25 12:30 | Outpatient (RCR) | payer MEDICARE, SELFPAY ==
--- NOTE | 2024-11-09 14:37 | OPREHPOC ---
Outpatient Therapy Plan of Care This is a Multidisciplinary Plan of Care that may contain components documented by all disciplines (PT, OT, and ST.) PT Problem 1 PT Problem #1 Knowledge Deficit PT Goal 1 Goal / Goal Update *indep with HEP * education for lymphedema compression garments and management Target Visit 20 PT Problem 2 PT Problem #2 Impaired Lymphatic System PT Goal 1 Goal / Goal Update improve lymphatic system and improve skin integrity: circumferential measurements to 64 cm from bottom of foot: 1* R 700 cm 2* L 680 cm no redness over lower legs 3* R 4* L minimal eschar tissue over ankles and feet 5* R 6* L visible malleoli 7* R 8* L Target Visit 20 PT Problem 3 PT Problem #3 Impaired Strength PT Goal 1 Goal / Goal Update increase R and L LE strength, to improve transfer and mobility skills 1* supine/sit transfer indep 2* sit/stand transfer with use of 1 UE from 18 seat 3* walking 150' with wheeled walker and without laboring Target Visit 20
--- NOTE | 2024-11-09 14:37 | PTOPEVAL1 ---
Assessment and note entered by Katelyn Cruz, PT Evaluation Information Assessment Status Evaluation ICD-10 Condition Codes (PT) Lymphedema I89.0 Onset about 1 year Subjective Information chronic issues with lymphedema in both legs had treatment here in the past ~ 2-3 years ago sleep in the recliner since TKR and problems moving legs recently just getting over COVID activity: wheeled walker used; have caregiver- errands, cooking, cleaning; son lives with her. pt drives Reported Pain Level Pain Score Self Report Additional Pain Score Comments overall leg pain stays about 2/10 all the time; legs heavy, feel like lugging a brick around legs tender to touch also have low back pain Assessment PT Clinical Summary Amalia has the diagnosis of lymphedema of both legs She has been here in the past for treatment and has a home intermittent compression pump. Since here last, she had L tibial fracture with ORIF, and she has stopped using her compression garment and occasional use of home pump. She has problems with walking and legs hurt. At home, she has assistance from her son and caregiver. With the evaluation: decreased walking ability with weakness of legs and increased size of legs; in sitting- she can reach to her proximal ankles; skin changes of both lower legs with thick, eschar tissue over toes, feet and ankles, with redness and fibrotic tissue over lower legs. Skilled PT services are indicated for lymphedema care--complete decongestive therapy, multiple layer compression wraps, manual lymph drainage, LE exercises, education for HEP, skin care, lymphedema management. Plan of Care Interventions Lymphedema Compression Wraps,Manual Lymph Drainage ,Neuro Re-education,Patient/Caregiver Education, Therapeutic Activities,Therapeutic Exercise PT Services Indicated Yes Treatment Frequency and 3x/wk for 10 visits Duration These treatments will address the objective and functional deficits as defined above. The patient will be advanced safely and appropriately in order for the patient to progress towards his/her prior level of function. Additional exercises will be introduced and as well as a comprehensive home exercise program upon discharge, if needed, ?to ensure carryover of functional gains achieved in the clinic. This treatment plan has been reviewed and agreement upon by the patient.
--- NOTE | 2024-12-01 12:04 | OPREHPOC ---
Outpatient Therapy Plan of Care This is a Multidisciplinary Plan of Care that may contain components documented by all disciplines (PT, OT, and ST.) PT Problem 1 PT Problem #1 Knowledge Deficit PT Goal 1 Goal / Goal Update *indep with HEP * education for lymphedema compression garments and management ------ 12-01-24 progress goal met continue towards goal to progress education Target Visit 24 PT Problem 2 PT Problem #2 Impaired Lymphatic System PT Goal 1 Goal / Goal Update improve lymphatic system and improve skin integrity: circumferential measurements to 64 cm from bottom of foot: 1* R 700 cm 2* L 680 cm no redness over lower legs 3* R 4* L minimal eschar tissue over ankles and feet 5* R 6* L visible malleoli 7* R 8* L 12-01-24 progress met goals 7,8 improved, continue towards other goals Target Visit 24 PT Problem 3 PT Problem #3 Impaired Strength PT Goal 1 Goal / Goal Update increase R and L LE strength, to improve transfer and mobility skills 1* supine/sit transfer indep 2* sit/stand transfer with use of 1 UE from 18 seat 3* walking 150' with wheeled walker and without laboring 12-01-24 d/c goals not met continue towards Target Visit 24
--- NOTE | 2024-12-01 12:04 | PTOPPROG ---
Assessment and note entered by Katelyn Cruz, PT, CLT Assessment Status Progress ICD-10 Condition Codes (PT) Lymphedema I89.0 Onset about 1 year Subjective Information legs are definitely improving and smaller than they have been in a long time; waiting on the velcro garments to get here; could not get the compression socks on myself; ready to be done with this therapy and get these legs done; Assessment PT Clinical Summary Amalia has received a total of 9 PT sessions. She is the same with: continues to have pain in her low back and both legs- knee pain and tenderness to touch. Limited walking to ~ 150' with wheeled walker and requires assist with LE on /off treatment mat. With lymphedema treatment to LE's: Circumferential measurements of R leg increased by 7.6 cm--but tissue is no longer fibrotic and less redness and less thick, eschar tissue over ankle, forefoot and toes; L LE decreased by 14.1 cm, with minimal fibrotic tissue over anterior smith scar with red, thick, raised tissue at lateral aspect of scar ~ 3 .5 x 1 cm; and eschar tissue over toes, forefoot and ankle. Education: compression garments and self care of lymphedema. Awaiting compression garments for terminal operator use-- they have been ordered and to arrive soon. The goals were partially achieved. Continue towards goals. And her compression garments to manage her LE lymphedema. Plan of Care Interventions Lymphedema Compression Wraps,Manual Lymph Drainage ,Neuro Re-education,Patient/Caregiver Education, Therapeutic Activities,Therapeutic Exercise PT Services Indicated Yes Treatment Frequency and 2-3x/wk for 10 visits Duration These treatments will address the objective and functional deficits as defined above. The patient will be advanced safely and appropriately in order for the patient to progress towards his/her prior level of function. Additional exercises will be introduced and as well as a comprehensive home exercise program upon discharge, if needed, ?to ensure carryover of functional gains achieved in the clinic. This treatment plan has been reviewed and agreement upon by the patient.
--- NOTE | 2024-12-09 11:20 | PCPTNOTE ---
pt called and canceled today's appt due to bad weather.
--- NOTE | 2024-12-11 16:05 | PCPTNOTE ---
pt called and canceled today's appt due to bad weather.
--- NOTE | 2025-01-01 12:36 | PCPTNOTE ---
pt called and canceled PT reeval due to falling in her garage, as she was on her way to come to therapy.
--- NOTE | 2025-01-19 12:56 | PCPTNOTE ---
pt did not show for today's appt, called her and left voice message.
--- NOTE | 2025-02-09 08:54 | PCPTNOTE ---
DISCHARGE PHYSICAL THERAPY 02-09-25 Rosalee Ratliff APRN Aamlia has not returned for lymphedema treatment since December 28. She has received 16 PT sessions, from November 09 to December 28 for the diagnosis of bilateral LE lymphedema. Discharge PT. The goals were not addressed.
== END 2025-02-07 23:59 | disposition home or self-care (01) ==
LOC: ANHPT 12:30
PROVIDERS: PCP Internal Medicine; Visit Provider Clinical Nurse Specialist
DX: I89.0 Lymphedema, not elsewhere classified (principal)
CPT/HCPCS: 29581; 97110; 97140; 97161; 97530

== ENCOUNTER 2025-01-05 16:49 | Outpatient (CLI) | payer MEDICARE, SELFPAY ==
--- NOTE | ~2025-01-05 | XR_ITS ---
AP and lateral views of the left tibia/fibula Clinical History: Trauma Findings: No acute fracture or dislocation is seen. Healed distal tibial fracture present with tibial intramedullary nakia present. There is also healed fracture of the distal fibular shaft. Joint spaces are preserved without significant erosive or degenerative change. There is diffuse subcutaneous soft tissue edema. Impression: No acute osseous or articular abnormality. Healed fractures of the distal tibia and fibula, with tibial intramedullary nakia present. Diffuse subcutaneous soft tissue edema, nonspecific. Reviewed, dictated and finalized at location M. Impression: No acute osseous or articular abnormality. Healed fractures of the distal tibia and fibula, with tibial intramedullary nakia present. Diffuse subcutaneous soft tissue edema, nonspecific.
--- NOTE | ~2025-01-05 | XR_ITS ---
Lumbosacral Spine: AP and lateral views Clinical History: Pain Findings: The normal lordotic curve is maintained. No fracture evident. There is 6 mm retrolisthesis of L2 over L3. There is advanced degenerative disc narrowing at L1-L2 and L2-L3. There is severe face t arthropathy throughout the lumbar spine, especially from L4-S1. The sacroiliac joints are normally outlined. Impression: Advanced degenerative spondylosis, as above. 6 mm retrolisthesis of L2 over L3. Reviewed, dictated and finalized at location M. Impression: Advanced degenerative spondylosis, as above. 6 mm retrolisthesis of L2 over L3.
--- OUTSIDE RECORDS SUMMARY | 2025-01-05 17:38 | XMS_ITS | Clinical Summary ---
Author Organization [facility] Address [address] [place] [address] Phone Care Team Providers Care Base Cloth Inspector Name Role Phone Jose Marrufo MD Primary Care Provider [phone] Allergies No known active allergies Medications amLODIPine (NORVASC) 5 MG Tablet Take 5 mg by mouth daily. Active lisinopril-hydr oCHLOROthiazide (PRINZIDE, ZESTORETIC) 10-12.5 MG Tablet Take 1 Tablet by mouth daily. Active acetaminophen (Tylenol) 325 MG Tablet Take 325 mg by mouth every 4 hours as needed. Active diphenhydrAMINE -APAP, sleep, (TYLENOL PM EXTRA STRENGTH PO) Take 1 Tablet by mouth nightly as needed. Active MULTIPLE VITAMINS PO Take 1 Tablet by mouth daily. Active nebivolol (Bystolic) 5 MG Tablet Take 5 mg by mouth daily. Active HYDROcodone-flory taminophen (NORCO) 7.5-325 MG Tablet Take 1 Tablet by mouth every 4 hours as needed for Moderate or more severe pain. 12/06/2020 Active atorvastatin (LIPITOR) 20 MG Tablet Take 20 mg by mouth daily. 11/26/2020 Active Active Problems Problem Noted Date Diagnosed Date Primary osteoarthritis of right knee 12/14/2020 Family History Medical History Relation Name Comments Cancer Father COLON Cancer Mother COLON Hypertension Paternal Grandmother Relation Name Status Comments Father Mother Paternal Grandmother Social History Tobacco Use Types Packs/Day Years Used Date Smoking Tobacco: Never Smokeless Tobacco: Never Alcohol Use Standard Drinks/Week Comments Not Currently 0 (1 standard drink = 0.6 oz pur e alcohol) Comments Unknown Sex and Gender Information Value Date Recorded Sex Assigned at Not on file Legal Sex Female 1:21 PM [employer] Gender Identity Not on file Sexual Orientation Not on file Last Filed Vital Signs Vital Sign Reading Time Taken Comments Blood Pressure 128/63 12/15/2020 2:40 PM CDT Pulse 58 12/15/2020 2:40 PM CDT Temperature 36.5 C (97.7 F) 12/15/2020 2:40 PM CDT Respiratory Rate 16 12/15/2020 2:40 PM CDT Oxygen Saturation 98% 12/15/2020 2:40 PM CDT Inhaled Oxygen Concentration - - Weight 108.9 kg (240 lb) 12/14/2020 6:00 AM CDT Height 165.1 cm (5' 5 ) 12/14/2020 6:00 AM CDT Body Mass Index 39.94 12/14/2020 6:00 AM CDT Plan of Treatment Health Maintenance Due Date Last Done Comments Hepatitis C Virus (HCV) Screening 1955 TdaP Immunization 1955 Colonoscopy 2000 Colorectal Cancer Screening 2000 Cologuard 2005 Immunochemical Fecal Occult Blood 2005 Pneumococcal Immunization (5 0+ years) (1 of 1 - PCV) 2005 Zoster Immunization (1 of 2) 2005 Influenza Immunization (#1) 2024 SARS-COV-2 Immunization ( season) 2024 04/26/2021, 04/05/2021, 12/23/2020 Respiratory Syncytial Virus (RSV) Immunization (Adult) (1 - 1-dose 75+ series) 2030 Hepatitis B Immunization Aged Out No longer eligible based on patient's age to complete this topic Meningococcal Immunization (ACWY) Aged Out No longer eligible b ased on patient's age to complete this topic Rotavirus Immunization Aged Out No lo nger eligible based on patient's age to complete this topic Medical Devices Implanted Type Area Control System Computer Scientist Device Identifier Shelf Expiration Date Model / Serial / Lot Cement Bone Orthoset 1 40gm - [id number] Implanted:Qty : 1 on 12/14/2020 by Tan Ibanez MD at [facility] IMPLANT Right: Knee [employer] 04/08/2023 [id number] / / [id number] Cement Bone Orthoset 1 40gm - [id number] Implanted:Qty : 1 on 12/14/2020 by Tan Ibanez MD at [facility] IMPLANT Right: Knee [employer] 12/07/2021 [id number] / / [id number] Component Patellar High Dome 9mm 25mm Recessed Advance All Poly - [id number] Implanted:Qty : 1 on 12/14/2020 by Tan Ibanez MD at [facility] IMPLANT Right: Knee [employer] 10/19/2027 [id number] / [id number] / [id number] Insert Evolution Mp Tib Keeled Nonpor Size 4 Standard Right - [id number] Implanted:Qty : 1 on 12/14/2020 by Tan Ibanez MD at [facility] IMPLANT Right: Knee [employer] 09/21/2027 [id number] / [id number] / [id number] Insert Evolution Mp Fem Cs/Cr Porous - [id number] Implanted:Qty : 1 on 12/14/2020 by Tan Ibanez MD at [facility] IMPLANT Right: Knee [employer] 02/04/2028 [id number] / [id number] / [id number] Evolution Mp Cs Insert Implanted:Qty : 1 on 12/14/2020 by Tan Ibanez MD at [facility] Right: Knee [employer] 07/22/2027 [id number] / [id number] / [id number] Insurance MEDIC[employer] Care Teams Base Cloth Inspector Relationship Specialty Start Date End Date Jose Marrufo MD [address] [place], [place] [id number] PCP - General Sports Medicine 12/05/20
--- OUTSIDE RECORDS SUMMARY | 2025-01-05 17:38 | XMS_ITS | Clinical Summary ---
Author Organization [facility] [employer] Address [address] [place] [address] Care Team Providers Care Supervisor Electronics Testing Name Role Phone Jose Marrufo MD Primary Care Provider [phone] Source Comments [facility] [employer],non-owned Affiliates and Associated Physician Practices is amultiple site organization consisting of ambulatory clinics and hospital sitesin [place], [place], [place]. This disclosure is being madepursuant to the Care Everywhere program and may not contain all information available regarding this patient. Last updated 18.[employer] Allergies No known active allergies Medications * This document contains information received from the source organization and may not represent a complete record from that organization. * Be aware that medications may not be up to date on this document. Alwaysverify current medications with the patient. atorvastatin (Lipitor) 20 MG tablet Take 1 (one) tablet by mouth once daily Active cyclobenzaprin e (Flexeril) 5 MG tablet Take 1 (one) tablet by mouth 3 times daily as needed Active amLODIPine (Norvasc) 5 MG tabletIndicati ons:Hypertensi on Take 1 (one) tablet by mouth once daily Reasons: High Blood Pressure Disorder Active acetaminophen (Tylenol) 500 MG tablet Take 1 (one) tablet by mouth every 4 hours as needed Maximum allowable Acetaminophen amount = 4 Grams (4000 mg) / 24 hours. 3 Active meloxicam (Mobic) 7.5 MG tablet Take 1 (one) tablet by mouth once daily HOLD for first month after fracture 3 Active melatonin 3 MG tablet Take 1 (one) tablet by mouth nightly as needed - may repeat one time for Insomnia 3 Active vitamin D, ergocalciferol , (Drisdol) 1.25 MG (38372 UT) capsule Take 1 (one) capsule by mouth every 7 days 3 Active multivitamin daily tablet Take 1 (one) tablet by mouth daily with food 3 Active acetaminophen (Tylenol) 325 MG tablet Take 1 (one) tablet by mouth every 4 hours as needed Active amLODIPine (Norvasc) 10 MG tablet Take 1 (one) tablet by mouth once daily Active lisinopril-hyd roCHLOROthiazi de (Prinzide; Zestoretic) 20-12.5 MG tablet Take 1 (one) tablet by mouth once daily 2 Active lisinopril-hyd roCHLOROthiazi de (Prinzide; Zestoretic) 10-12.5 MG tablet Take 1 (one) tablet by mouth once daily Active nebivolol (Bystolic) 5 MG tablet Take 1 (one) tablet by mouth once daily Active nystatin-triam cinolone (Mycolog) 377555-2.1 UNIT/GM-% creamIndicatio ns:Wound of left lower extremity, initial encounter Apply to affected area 2 times daily 60 g 1 4 Active ferrous sulfate 325 (65 FE) MG tablet Take 1 (one) tablet by mouth once daily Active ascorbic acid (Vitamin C) 250 MG tablet Take 1 (one) tablet by mouth once daily Active Active Problems Problem Noted Date Diagnosed Date Hydrocephalus 04/01/2023 Acute blood loss anemia 04/01/2023 Encounter for management of wound VAC 04/01/2023 Decreased mobility 04/01/2023 Type I or II open fracture o f distal end of left tibia, unspecified fracture morphology, initial encounter 03/31/2023 Essential hypertension 03/31/2023 Immunizations Immunization Administration Dates Next Due TDAP (7yrs+) 03/31/2023 Social History Tobacco Use Types Packs/Day Years Used Date Smoking Tobacco: Never Passive Smoke Exposure: Never Smokeless Tobacco: Never Tobacco Cessation:Counseling Given: Not Answered AUDIT-C Answer Date Recorded Q1: How often do you have a drink containing alcohol? Never 04/01/2023 Q2: How many drinks containi ng alcohol do you have on a typical day when you are drinking? Patient does not drink Q3: How often do you have si x or more drinks on one occasion? Never 04/01/2023 Overall Financial Resource Strain (CARDIA) Answe r Date Recorded How hard is it for you to pa y for the very basics like food, housing, medical care, and heating? Somewhat hard 04/01/2023 PHQ-2 Answer Date Recorded Patient Health Questionnaire-2 Score 0 06/27/2023 [facility] - Occupational Stress Questionnaire Answer Date Recorded Do you feel stress - tense, restless, nervous, or anxious, or unable to sleep at night because your mind is troubled all the time - these days? Rather much 04/01/2023 Hunger Vital Sign Answer Date Recorded Within the past 12 months, y ou worried that your food would run out before you got the money to buy more. Sometimes true Within the past 12 months, t he food you bought just didn't last and you didn't have money to get more. Sometimes true PRAPARE - Transportation Answer Date Re corded In the past 12 months, has l ack of transportation kept you from medical appointments or from getting medications? No 03/10 In the past 12 months, has l ack of transportation kept you from meetings, work, or from getting things needed for daily living? No 04/01/2023 Housing Stability Vital Sign Answer Jah e Recorded In the last 12 months, was t here a time when you were not able to pay the mortgage or rent on time? Yes 04/01/2023 In the last 12 months, how many places have you lived? 1 04/01/2023 In the last 12 months, was t here a time when you did not have a steady place to sleep or slept in a fpc (including now)? No 04/01/2023 Comments No Sex and Gender Information Value Date Recorded Sex Assigned at Not on file Legal Sex Female 11:58 AM CDT Gender Identity Not on file Sexual Orientation Not on file Last Filed Vital Signs Vital Sign Reading Time Taken Comments Blood Pressure 193/99 09/10/2023 10:47 AM VACUUM TECHNICIAN Pulse 72 11/12/2023 10:14 AM VACUUM TECHNICIAN Temperature 36.7 C (98.1 F) 09/10/2023 10:47 AM VACUUM TECHNICIAN Respiratory Rate 18 05/10/2023 10:32 AM CDT Oxygen Saturation 99% 11/12/2023 10:14 AM VACUUM TECHNICIAN Inhaled Oxygen Concentration - - Weight 117 kg (258 lb) 11/12/2023 10:14 AM VACUUM TECHNICIAN Height 162.6 cm (5' 4 ) 11/12/2023 10:14 AM VACUUM TECHNICIAN Body Mass Index 44.29 11/12/2023 10:14 AM VACUUM TECHNICIAN Plan of Treatment Health Maintenance Due Date Last Done Comments BONE DENSITY TESTING 1955 COLOGUARD (AGES 45-75) - COLON CA SCREENING 1955 COLON MONITORING 1955 COLONOSCOPY - COLON CA SCREENING 1955 CT COLONOGRAPHY - COLON CA SCREENING 1955 Colorectal Cancer Screening 1955 FIT - COLON CA SCREENING 1955 FLEX SIG - COLON CA SCREENING 1955 MAMMOGRAM 1955 MEDICARE AWV 12 MONTHS 1955 HEPATITIS C SCREENING 03/19/1973 PNEUMOCOCCAL VACCINE 50+ (1 of 1 - PCV) 2005 ZOSTER VACCINE (1 of 2) 2005 Respiratory Syncytial Virus (RSV) Vaccine Pt: or over 60 yrs (1 - Risk 60-74 years 1-dose series) 2015 COVID-19 VACCINE ( - season) 2024 05/08/2022, 04/26/2021, 04/05/2021, Additional history exists DEPRESSION SCREENING 09/09/2024 06/06/2023 INFLUENZA VACCINE (Season Ended) 2025 SCREENING FOR DIABETES 04/10/2026 3, 04/09/2023, 04/08/2023, Additional history exists DTAP/TDAP/TD VACCINES (2 - Td or Tdap) 03/31/2033 03/31/2023 HEPATITIS B VACCINE Aged Out No longe r eligible based on patient's age to complete this topic HIB VACCINE Aged Out No longer eligi ble based on patient's age to complete this topic HPV VACCINE Aged Out No longer eligi ble based on patient's age to complete this topic MENINGOCOCCAL (Group B) VACCINE SHARED DECISION-MAKING Aged Out No longer eligible based on patient's age to complete this topic MENINGOCOCCAL GROUPS A/C/Y/W VACCINE Aged Out No longer eligible based on patient's age to complete this topic Medical Devices Implanted Type Area Machine Container Washer Device Identifier Shelf Expiration Date Model / Serial / Lot Tibial Nail Advanced 12mm/315mm Implanted:Qty: 1 on 04/02/2023 by Dany Montenegro MD at [facility] Nail Left: Tibia [employer]ynthe[employer] Trauma [id number] / N/A / [id number] 5.0 Locking Screws For Im Nails With Xl 25 Recess Implanted:Qty: 1 on 04/02/2023 by Dany Montenegro MD at [facility] Screw Left: Tibia [employer] Trauma [id number] / N/A / 5.0 Mm Locking Screws For Im Nails With Xl25 Recess Implanted:Qty: 1 on 04/02/2023 by Dany Montenegro MD at [facility] Screw Left: Tibia [employer] Trauma 04.045.052S / N/A / 5.0 Mm Locking Screws For Im With Xl25 Recess Implanted:Qty: 1 on 04/02/2023 by Dany Montenegro MD at [facility] Screw Left: Tibia [employer] Trauma 04.045.036S / N/A / 5.0 Mm Locking Screws For Im Nails With Xl 25 Recess Implanted:Qty: 1 on 04/02/2023 by Dany Montenegro MD at [facility] Screw Left: Tibia [employer] Trauma 04.045.030S / N/A / 5.0 Locking Screws For Im Nails With Xl25 Recess Implanted:Qty: 1 on 04/02/2023 by Dany Montenegro MD at [facility] Screw Left: Tibia [employer] Trauma 04.045.040S / N/A / Pin Hlf 17.5cm 5mm Jtx Ss 30mm Extfix - [id number] Implanted:Qty: 2 on 03/31/2023 by Edy Badillo DO at [facility] Left: Tibia [employer] [id number] / [id number] / Pin Hlf 5cm 5mm Jtx Orth Ss Extfix Sys - [id number] Implanted:Qty: 1 on 03/31/2023 by Edy Badillo DO at [facility] Left: Foot [employer] [id number] / [id number] / Screw 2.7mm 5mm 28mm T8 Slf-Tap Strdr - [id number] Implanted:Qty: 1 on 03/31/2023 by Edy Badillo DO at [facility] Left: Foot [employer]ynthe[employer] 202.888 / 202.888 / Plate 7 Hl Lopro Cut To Lgth 60mm Lcp Implanted:Qty: 1 on 03/31/2023 by Edy Badillo DO at [facility] Left: Foot [employer] [id number] / / Screw 2.4mm 1.9mm 8mm T8 Ft Slf-Tap Lck Implanted:Qty: 5 on 03/31/2023 by Edy Badillo DO at [facility] Left: Foot [employer] 212.808 / / 2.4 Locking Screw Sd Recess 7 Implanted:Qty: 1 on 03/31/2023 by Edy Badillo DO at [facility] Left: Foot 212.807 / / Procedures Procedure Name Priority Date/Time Associated Diagnosis Comments BASIC METABOLIC PANEL (CALCIUM TOTAL) Routine 04/10/2023 6:38 AM CDT from Last 3 Months or Most Recently Relevant to Health Maintenance Results * (ABNORMAL) BASIC METABOLIC PANEL (CALCIUM TOTAL) (04/10/2023 6:38 AM CDT) BUN 17 7 - 26 mg/dL 04/10/2023 7:[address] [facility] Creatinine 0.78 0.56 - 0.96 mg/dL 04/10/2023 7:[address] [facility] Sodium 137 136 - 145 mmol/L 04/10/2023 7:[address] [facility] Potassium 4.0 3.5 - 4.5 mmol/L 04/10/2023 7:49 AM CDT [facility] Chloride 107 98 - 107 mmol/L 04/10/2023 7:49 AM [facility] CO2 26 22 - 29 mmol/L 04/10/2023 7:49 AM [facility] Glucose 89 70 - 115 mg/dL 04/10/2023 7:49 AM [facility] Calcium 8.9 8.4 - 10.2 mg/dL 04/10/2023 7:49 AM [facility] Anion Gap 8 8 - 18 04/10/2023 7:49 AM [facility] BUN/Creatinine Ratio 22 7 - 23 04/10/2023 7:49 AM [facility] Osmolality Calculated 285 270 - 300 mOsm/kg 04/10/2023 7:49 AM [facility] eGFR by CKD-EPI 83(L) >=90 mL/min/1.7 3 m2 04/10/2023 7:49 AM [facility] Blood BLOOD SPECIMEN / Unknown Lab Venipuncture / Unknown 04/10/2023 6:38 AM CDT 04/10/2023 7:18 AM [facility] Hugh Ferrell MD LAB - CHEMISTRY ORDERABLES Critical access hospital Result [facility] [address] [place] [address], [facility] [phone] from Last 3 Months or Most Recently Relevant to Health Maintenance Insurance MEDICARE MEDICARE Advance Directives * Full Code (Latest Code Status on File) Date Activated Date Inactivated Comments 03/31/2023 6:56 PM 04/10/2023 5:50 PM Care Teams Supervisor Electronics Testing Relationship Specialty Start Date End Date Jose Marrufo MD [address] [place] [address] PCP - General Family Medicine 05/22/23
--- OUTSIDE RECORDS SUMMARY | 2025-01-05 17:38 | XMS_ITS | Clinical Summary ---
Author Organization [facility] Address [address] [address] Phone Care Team Providers Care Shredded Filler Hopper Feeder Name Role Phone Cecil Dolan MD Primary Care Provider [phone] Allergies No known active allergies Medications amLODIPine (NORVASC) 10 mg tablet Take 10 mg by mouth daily. Active lisinopril (PRINIVIL) 20 mg tablet Take 1 Tab (20 mg) by mouth daily. 30 Tab 0 02/17/2015 Active ondansetron (ZOFRAN ODT) 4 mg Tablet, Rapid Dissolve Place 1 Tab (4 mg) under tongue every 8 hours as needed for Nausea. 10 Tab 0 02/17/2015 Active Active Problems Problem Noted Date Diagnosed Date Morbid obesity 02/16/2015 Benign hypertension 02/16/2015 Female stress incontinence 02/16/2015 Family History Medical History Relation Name Comments Colon Cancer Father Colon Cancer Mother Relation Name Status Comments Father Mother Social History Tobacco Use Types Packs/Day Years Used Date Smoking Tobacco: Never Alcohol Use Standard Drinks/Week Comments No 0 (1 standard drink = 0.6 oz pur e alcohol) Comments Unknown Sex and Gender Information Value Date Recorded Sex Assigned at Not on file Legal Sex Female 8:16 AM CDT Gender Identity Not on file Sexual Orientation Not on file Last Filed Vital Signs Vital Sign Reading Time Taken Comments Blood Pressure 148/82 02/17/2015 10:36 AM CDT Pulse 73 02/17/2015 10:36 AM CDT Temperature 36.6 C (97.8 F) 02/17/2015 10:36 AM CDT Respiratory Rate 16 02/17/2015 10:3 6 AM CDT Oxygen Saturation 99% 02/17/2015 10: 36 AM CDT Inhaled Oxygen Concentration - - Weight 134.8 kg (297 lb 3.2 oz) 02/17/2015 3:27 AM CDT Height 162.6 cm (5' 4 ) 02/16/2015 12:1 9 PM CDT Body Mass Index 51.01 02/16/2015 12:19 PM CDT Plan of Treatment Health Maintenance Due Date Last Done Comments DTAP/TDAP/TD VACCINES (1 - Tdap) 1974 BREAST CANCER SCREENING 1995 COLORECTAL SCREENING 2000 Colorectal Cancer Screening 2000 FIT-DNA Q 3 years 2000 FIT/FOBT Q 1 year 2000 Flex Sig/CT Colonography Q 5 years 2000 PNEUMOCOCCAL VACCINE 50+ YEARS (1 of 1 - PCV) 03/24/20 05 ZOSTER VACCINE (1 of 2) 2005 OSTEOPOROSIS SCREENING 2020 INFLUENZA VACCINE (#1) 2024 RSV VACCINE (60+ or ) (1 - 1-dose 75+ series) 2030 Medical Devices Implanted Type Area Slab Tripper Device Identifier Shelf Expiration Date Model / Serial / Lot Seamguard Bio 60 [id number] - [id number] Implanted:Qty: 5 on 02/16/2015 by Carl Espinoza MD at [facility] N/A: Stomach [employer] 10/09/2016 [id number] / / [id number] Description:IMPLANT #5 LOT # -[id number] EXP 10/09/17 Advance Directives For more information, please contact: [phone] * Full Code (Latest Code Status on File) Date Activated Date Inactivated Comments 02/16/2015 6:46 AM 02/17/2015 4:19 PM Care Teams Shredded Filler Hopper Feeder Relationship Specialty Start Date End Date Cecil Dolan MD [address] [place] [address] PCP - General Family Practice 02/08/15
== END 2025-01-05 16:50 | disposition home or self-care (01) ==
PROVIDERS: PCP Clinical Nurse Specialist; Visit Provider Clinical Nurse Specialist
DX: M47.896 Other spondylosis, lumbar region (principal); M79.662 Pain in left lower leg
CPT/HCPCS: 72100; 73590